=== PATIENT | female | born 2005 | race Caucasian/White ===

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

== ENCOUNTER → 2023-04-02 | Outpatient (CLI) | payer OTHER ==
[2023-04-02 19:51] LABS: HCT 43.2 % (37.2-46.3); HGB 13.9 g/dL (12.0-15.0); MCH 28.4 pg (27.0-32.0); MCHC 32.2 g/dL (32.0-37.0); MCV 88.3 FL (80.0-97.0); Mean Platelet Volume 9.3 FL (9.5-12.2); NRBC Per 100 WBC 0 X 10*3/uL (0.00-0.01); Platelet Count 524 X 10*3/uL (140-440); RBC 4.89 X 10*6/uL (4.10-5.20); RDW 13.2 % (11.5-14.5); WBC 12.88 X 10*3/uL (4.50-10.00)
[2023-04-02 20:27] LABS: ALT 9 U/L (8-44); AST 10 U/L (13-35); Albumin 4.6 g/dL (3.8-4.9); Albumin/Globulin Ratio 1.35 Ratio (1.60-3.17); Alkaline Phosphatase 112 U/L (41-126); BUN/Creat Ratio 15.29 Ratio (12.00-20.00); Blood Urea Nitrogen 10.7 mg/dL (9.0-27.0); Carbon Dioxide 23.9 mmol/L (21.6-31.8); Chloride 103 mmol/L (96-109); Globulin 3.4 g/dL (1.6-3.3); Glucose 104 mg/dL (70-110); Potassium 4.5 mmol/L (3.5-5.5); Sodium 139 mmol/L (135-145); Total Bilirubin <0.2 mg/dL (0.3-1.2)
[2023-04-02 21:18] LABS: Erythrocyte Sedimentation Rate 42 mm/Hr (0-20)
[2023-04-02 22:12] LABS: Hepatitis B Surface Antigen Nonreactive; Hepatitis C IgG Antibody Nonreactive
== END | disposition home or self-care (01) ==
LOC: LABWHC1 16:09
PROVIDERS: ATTEND Internal Medicine Gastroenterology
DX: K51.90 Ulcerative colitis, unspecified, without complications (principal)
CPT/HCPCS: 36415; 80053; 85027; 85652; 86480; 86704; 86803; 87340

== ENCOUNTER → 2023-10-11 | Outpatient (CLI) | payer OTHER ==
--- NOTE | 2023-10-11 10:24 | US ---
EXAMINATION TYPE: US abdomen complete DATE OF EXAM: 10/11/2023 COMPARISON: CT 2022 CLINICAL INDICATION: Female, 18 years old with history of R10.11 RUQ PAIN; RUQ pain after eating. TECHNIQUE: Multiple sonographic images of the abdomen are obtained. FINDINGS: EXAM MEASUREMENTS: Liver Length: 14.1 cm Gallbladder Wall: 0.29 cm CBD: 0.27 cm Spleen: Limited, measured at 9.1 cm Right Kidney: 10.4 x 5.4 x 4.1 cm Left Kidney: 10.4 x 5.4 x 5.6 cm RECOVERY AUDITOR NOTES: *Exam is limited due to gas. Pancreas: Portion of tail was obscured. Liver: Appears slightly coarse in echotexture. Gallbladder: Folds seen. Appearance of Phrygian's cap. Evidence for sonographic Rodriguez's sign: No CBD: Appears wnl Spleen: Limited visibility. Right Kidney: No hydronephrosis or masses seen Left Kidney: No hydronephrosis or masses seen Upper IVC: Appears wnl Abd Aorta: Appears wnl IMPRESSION: Correlate for hepatic steatosis.
== END | disposition home or self-care (01) ==
LOC: RADUSWWP 09:39
PROVIDERS: ATTEND Family Medicine
DX: R10.11 Right upper quadrant pain (principal)
CPT/HCPCS: 76700

== ENCOUNTER 2024-01-25 14:27 | Inpatient (IN) | payer OTHER ==
--- NOTE | 2024-01-25 14:41 | ED ---
General Adult HPI - General Chief complaint: Chest Pain Stated complaint: abn labs Source: patient Mode of arrival: ambulatory Limitations: no limitations - History of Present Illness Initial comments: Dictation was produced using [employer] dictation software. please excuse any grammatical, word or spelling errors. Chief Complaint: 18-year-old female with chest pressure History of Present Illness:18-year-old female sent in by PCP office for abnormal outpatient labs. Patient has no coronary artery disease. She has allegedly family history of cardiac disease. She was seen at primary care physician's office yesterday where she had normal EKG sent home. She had outpatient labs including high-sensitivity troponin and D-dimer which were both found to be elevated. She has pressure in her chest nonradiating. Patient reports that her symptoms seem to be exacerbated whenever she lies flat. Mother states that patient was sick with a cold couple weeks ago that lasted for a few days. States that she has been on prednisone therapy for her ulcerative colitis The ROS documented in this emergency department record has been reviewed and confirmed by me. Those systems with pertinent positive or negative responses have been documented in the HPI. All other systems are other negative and/or noncontributory. - Related Data Home Medications Medication Instructions Recorded Confirmed Albuterol Inhaler [Ventolin Hfa 2 puff INHALATION RT-QID PRN 01/25/24 01/25/24 Inhaler] Mesalamine [Lialda] 1.2 gm PO BID 01/25/24 01/25/24 norethindrone-e.estradioL-iron 1 tab PO DAILY 01/25/24 01/25/24 [Junel Fe 1.5 mg-30 Mcg Tablet] predniSONE See Taper PO DIRECTED 01/25/24 01/25/24 Allergies Allergy/AdvReac Type Severity Reaction Status Date / Time cephalexin monohydrate Allergy Anaphylaxis Verified 01/25/24 15:25 [From Keflex] propofol AdvReac Anaphylaxis Verified 01/25/24 15:25 Review of Systems ROS Statement: Those systems with pertinent positive or pertinent negative responses have been documented in the HPI. ROS Other: All systems not noted in ROS Statement are negative. Past Medical History Past Medical History: Asthma Additional Past Medical History / Comment(s): Taking Acutane for acne. Has stopped for one month. Diarrhea with blood. History of Any Multi-Drug Resistant Organisms: None Reported Past Surgical History: No Surgical Hx Reported Additional Past Anesthesia/Blood Transfusion Reaction / Comment(s): Has never had anesthesia. Past Psychological History: No Psychological Hx Reported Smoking Status: Never smoker Past Alcohol Use History: None Reported Past Drug Use History: None Reported - Past Family History Mother Family Medical History: No Reported History General Exam - General Exam Comments Initial Comments: PHYSICAL EXAM: General Impression: Alert and oriented x3, not in acute distress HEENT: Normocephalic atraumatic, extra-ocular movements intact, pupils equal and reactive to light bilaterally, mucous membranes moist. Cardiovascular: Heart regular rate and rhythm Chest: Able to complete full sentences, no retractions, no tachypnea Abdomen: abdomen soft, non-tender, non-distended, no organomegaly Musculoskeletal: Pulses present and equal in all extremities, no peripheral edema Motor: no focal deficits noted Neurological: CN II-XII grossly intact, no focal motor or sensory deficits noted Skin: Intact with no visualized rashes Psych: Normal affect and mood Limitations: no limitations Course Vital Signs 01/25/24 01/25/24 01/25/24 14:31 16:27 17:08 Temperature 97.8 F Pulse Rate 150 H 114 H 125 H Respiratory 18 16 19 Rate Blood Pressure 125/79 105/78 113/81 O2 Sat by Pulse 99 97 98 Oximetry EKG Findings - EKG Comments: EKG Findings:: My EKG interpretation: Ventricular rate 142, sinus tachycardia,. 120, QRS 82, QTc 410. No HI prolongation, no QTC prolongation, no ST or T-wave changes noted. HI depressions seen into the lateral precordial leads. Medical Decision Making - Medical Decision Making Was pt. sent in by a medical professional or institution (, PA, COUNTER POCKET TRIMMER, urgent care, hospital, or detention...) When possible be specific @ -Sent from primary care physician's office Did you speak to anyone other than the patient for history (EMS, parent, family, police, friend...)? What history was obtained from this source @ -See above Did you review nursing and triage notes (agree or disagree)? Why? @ -I reviewed and agree with nursing and triage notes Were old charts reviewed (outside hosp., previous admission, EMS record, old EKG, old radiological studies, urgent care reports/EKG's, detention records)? Report findings @ -No old charts were reviewed Differential Diagnosis (chest pain, altered mental status, abdominal pain women, abdominal pain men, vaginal bleeding, musculoskeletal, weakness, fever, dyspnea, syncope, headache, dizziness, GI bleed, back pain, seizure, CVA, palpatations, mental health)? @ -Differential Chest Pain: Stable Angina, Unstable Angina, STEMI, NSTEMI Aortic Dissection, Pneumothorax, Musculoskeletal, Esophageal Spasm GERD, Cholecystitis, Pancreatitis, Zoster, this is not meant to be an all-inclusive list. EKG interpreted by me (3pts min.). @ -See above X-rays interpreted by me (1pt min.). @ -Chest x-ray nonacute CT interpreted by me (1pt min.). @ -CT angiography of the chest shows no acute processes U/S interpreted by me (1pt. min.). @ -None done What testing was considered but not performed or refused? (CT, X-rays, U/S, labs)? Why? @ -None What meds were considered but not given or refused? Why? @ -None Was smoking cessation discussed for >3mins.? @ -No Were there social determinants of health that impacted care today? How? (Homelessness, low income, unemployed, alcoholism, drug addiction, transportation, low edu. Level, literacy, decrease access to med. care, senior care, rehab)? @ -No Was there de-escalation of care discussed even if they declined (Discuss DNR or withdrawal of care, Hospice)? DNR status @ -No What co-morbidities impacted this encounter? (DM, HTN, Smoking, COPD, CAD, Cancer, CVA, ARF, Chemo, Hep., AIDS, mental health diagnosis, sleep apnea, morbid obesity)? @ -None Was patient admitted / discharged? Hospital course, mention meds given and route, prescriptions, significant lab abnormalities, going to OR and other pertinent info. @ -18-year-old female presents to the emergency department for elevated troponin and D-dimer. He is labs were ordered by primary care doctor yesterday after she presented there for chest pain. Vital signs upon arrival shows tachycardia. Patient symptoms concerning for pericarditis. Laboratory evaluation obtained showing troponin of 0.443. EKG shows HI depression. Urine drug screen is negative. Case discussed with cardiology request that patient be put on Motrin, colchicine and Protonix. Patient be admitted to Dr. Key. Did you discuss the management of the patient with other professionals (professionals i.e. , PA, COUNTER POCKET TRIMMER, lab, RT, psych nurse, social worker school, psychology associate, teacher, ict help desk officer, renal case manager)? Give summary @ -See above Was critical care preformed (if so, how long)? @ -No Undiagnosed new problem with uncertain prognosis? @ -No Drug Therapy requiring intensive monitoring for toxicity (Heparin, Nitro, Insulin, Cardizem)? @ -No Were any procedures done? @ -No Diagnosis/symptom? Acute, or Chronic, or Acute on Chronic? Uncomplicated (without systemic symptoms) or Complicated (systemic symptoms)? @ -Carditis Side effects of treatment? @ -No Exacerbation, Progression, or Severe Exacerbation? @ -No Poses a threat to life or bodily function? How? (Chest pain, [place], [place], pneumonia, PE, COPD, DKA, ARF, appy, cholecystitis, CVA, Diverticulitis, Homicidal, Suicidal, threat to staff... and all critical care pts) @ -yes - Lab Data Result diagrams: 01/25/24 15:07 01/25/24 15:07 Lab Results 01/25/24 01/25/24 01/25/24 Range/Units 15:07 15:07 15:07 WBC 8.9 (4.0-11.0) k/uL RBC 4.59 (3.80-5.40) m/uL Hgb 13.9 (11.4-16.0) gm/dL Hct 43.3 (34.0-46.0) % MCV 94.3 (80.0-100.0) fL MCH 30.3 (25.0-35.0) pg MCHC 32.1 (31.0-37.0) g/dL RDW 12.9 (11.5-15.5) % Plt Count 478 H (150-450) k/uL MPV 6.4 Neutrophils % 76 % Lymphocytes % 15 % Monocytes % 5 % Eosinophils % 3 % Basophils % 0 % Neutrophils # 6.7 (1.3-7.7) k/uL Lymphocytes # 1.3 (1.0-4.8) k/uL Monocytes # 0.5 (0-1.0) k/uL Eosinophils # 0.3 (0-0.7) k/uL Basophils # 0.0 (0-0.2) k/uL PT 11.1 (10.0-12.5) sec INR 1.0 (<1.2) APTT 24.7 (22.0-30.0) sec Sodium 137 (137-145) mmol/L Potassium 3.6 (3.5-5.1) mmol/L Chloride 105 (98-107) mmol/L Carbon Dioxide 21 L (22-30) mmol/L Anion Gap 11 mmol/L BUN 8 (7-17) mg/dL Creatinine 0.81 (0.52-1.04) mg/dL Est GFR (CKD-EPI)AfAm >90 (>60 ml/min/1.73 sqM) Est GFR (CKD-EPI)NonAf >90 (>60 ml/min/1.73 sqM) Glucose 126 H (74-99) mg/dL Calcium 9.1 (8.4-10.2) mg/dL Magnesium 2.0 (1.6-2.3) mg/dL Total Bilirubin 0.7 (0.2-1.3) mg/dL AST 17 (14-36) U/L ALT 13 (4-34) U/L Alkaline Phosphatase 105 (38-126) U/L Troponin I (0.000-0.034) ng/mL Total Protein 7.5 (6.3-8.2) g/dL Albumin 4.1 (3.5-5.0) g/dL HCG, Quant <2.4 mIU/mL Urine Opiates Screen (NotDetected) Ur Oxycodone Screen (NotDetected) Urine Methadone Screen (NotDetected) Ur Barbiturates Screen (NotDetected) U Tricyclic Antidepress (NotDetected) Ur Phencyclidine Scrn (NotDetected) Ur Amphetamines Screen (NotDetected) U Methamphetamines Scrn (NotDetected) U Benzodiazepines Scrn (NotDetected) Urine Cocaine Screen (NotDetected) U Marijuana (THC) Screen (NotDetected) 01/25/24 01/25/24 Range/Units 15:07 17:08 WBC (4.0-11.0) k/uL RBC (3.80-5.40) m/uL Hgb (11.4-16.0) gm/dL Hct (34.0-46.0) % MCV (80.0-100.0) fL MCH (25.0-35.0) pg MCHC (31.0-37.0) g/dL RDW (11.5-15.5) % Plt Count (150-450) k/uL MPV Neutrophils % % Lymphocytes % % Monocytes % % Eosinophils % % Basophils % % Neutrophils # (1.3-7.7) k/uL Lymphocytes # (1.0-4.8) k/uL Monocytes # (0-1.0) k/uL Eosinophils # (0-0.7) k/uL Basophils # (0-0.2) k/uL PT (10.0-12.5) sec INR (<1.2) APTT (22.0-30.0) sec Sodium (137-145) mmol/L Potassium (3.5-5.1) mmol/L Chloride (98-107) mmol/L Carbon Dioxide (22-30) mmol/L Anion Gap mmol/L BUN (7-17) mg/dL Creatinine (0.52-1.04) mg/dL Est GFR (CKD-EPI)AfAm (>60 ml/min/1.73 sqM) Est GFR (CKD-EPI)NonAf (>60 ml/min/1.73 sqM) Glucose (74-99) mg/dL Calcium (8.4-10.2) mg/dL Magnesium (1.6-2.3) mg/dL Total Bilirubin (0.2-1.3) mg/dL AST (14-36) U/L ALT (4-34) U/L Alkaline Phosphatase (38-126) U/L Troponin I 0.443 H* (0.000-0.034) ng/mL Total Protein (6.3-8.2) g/dL Albumin (3.5-5.0) g/dL HCG, Quant mIU/mL Urine Opiates Screen Not Detected (NotDetected) Ur Oxycodone Screen Not Detected (NotDetected) Urine Methadone Screen Not Detected (NotDetected) Ur Barbiturates Screen Not Detected (NotDetected) U Tricyclic Antidepress Not Detected (NotDetected) Ur Phencyclidine Scrn Not Detected (NotDetected) Ur Amphetamines Screen Not Detected (NotDetected) U Methamphetamines Scrn Not Detected (NotDetected) U Benzodiazepines Scrn Not Detected (NotDetected) Urine Cocaine Screen Not Detected (NotDetected) U Marijuana (THC) Screen Not Detected (NotDetected) Disposition Clinical Impression: Myocarditis Disposition: ADMITTED IP TO THIS [facility] Condition: Fair Referrals: Benny Key MD [Primary Care Provider] - 1-2 days Decision Time: 17:53
[2024-01-25 15:31] LABS: ALT 13 U/L (4-34); AST 17 U/L (14-36); African American GFR (CKD) >90 (>60 ml/min/1.73 sqM); Albumin 4.1 g/dL (3.5-5.0); Alkaline Phosphatase 105 U/L (38-126); Anion Gap 11 mmol/L; Blood Urea Nitrogen 8 mg/dL (7-17); Calcium 9.1 mg/dL (8.4-10.2); Carbon Dioxide 21 mmol/L (22-30); Chloride 105 mmol/L (98-107); Glucose 126 mg/dL (74-99); Non-African American GFR(CKD) >90 (>60 ml/min/1.73 sqM); Potassium 3.6 mmol/L (3.5-5.1); Sodium 137 mmol/L (137-145); Total Bilirubin 0.7 mg/dL (0.2-1.3); Total Protein 7.5 g/dL (6.3-8.2)
[2024-01-25 15:43] LABS: Basophils % (A) 0 %; Eosinophils # (A) 0.3 k/uL (0-0.7); Eosinophils % (A) 3 %; HCT 43.3 % (34.0-46.0); HGB 13.9 gm/dL (11.4-16.0); Lymphocytes # (A) 1.3 k/uL (1.0-4.8); Lymphocytes % (A) 15 %; MCH 30.3 pg (25.0-35.0); MCHC 32.1 g/dL (31.0-37.0); MCV 94.3 fL (80.0-100.0); Mean Platelet Volume 6.4; Monocytes # (A) 0.5 k/uL (0-1.0); Monocytes % (A) 5 %; Neutrophils # (A) 6.7 k/uL (1.3-7.7); Neutrophils % (A) 76 %; Platelet Count 478 k/uL (150-450); RBC 4.59 m/uL (3.80-5.40); RDW 12.9 % (11.5-15.5); WBC 8.9 k/uL (4.0-11.0)
[2024-01-25 15:45] LABS: Partial Thromboplastin Time 24.7 sec (22.0-30.0); Prothrombin Time 11.1 sec (10.0-12.5)
[2024-01-25 15:48] LABS: HCG,Quantitative Serum <2.4 mIU/mL
--- NOTE | 2024-01-25 15:57 | XR ---
EXAMINATION TYPE: XR chest 2V DATE OF EXAM: 01/25/2024 COMPARISON: NONE HISTORY: Chest pain TECHNIQUE: Frontal and lateral views of the chest are obtained. FINDINGS: There is no focal air space opacity, pleural effusion, or pneumothorax seen. The cardiac silhouette size is within normal limits. The osseous structures are intact. IMPRESSION: No acute cardiopulmonary process. [facility], Workstation: [facility], 01/25/2024 3:55 PM
[2024-01-25] MEDS: KETOROLAC 15 MG/ML 1 ML VIAL IVP STA (17:23)
--- NOTE | 2024-01-25 17:33 | CT ---
EXAMINATION TYPE: CT angio chest DATE OF EXAM: 01/25/2024 5:11 PM COMPARISON: None CLINICAL INDICATION: Female, 18 years old with history of positive D-dimer; Positive d-dimer. TECHNIQUE/CONTRAST: CTA scan of the thorax is performed with IV Contrast, patient injected with 80ml mL of Isovue 370, AR P images are created and reviewed these are created on a separate workstation.. CT DLP: 267.5 mGycm, Automated exposure control for dose reduction was used. FINDINGS: Pulmonary Artery: There is no evidence for a filling defect within the pulmonary vasculature to sugge st acute pulmonary embolism. The pulmonary artery is of normal size. Lungs/Pleura: No evidence of focal consolidation, pleural effusion or pneumothorax. Airway: Large airways are patent. Heart: Heart is within normal limits for size. Vasculature: No evidence of aortic aneurysm. Mediastinum: No gross evidence of adenopathy. Musculoskeletal: No acute osseous abnormalities Soft Tissues/lymph nodes: Unremarkable. Lower neck: No significant findings. Upper Abdomen: No significant findings. IMPRESSION: 1. No evidence of pulmonary embolism. Follow up recommendations for incidental pulmonary nodules, if there are any, are per [employer] [place] [employer] [employer] or [employer]. https://radiopaedia.org/articles/fjaynjhliy-xeooofy-vnilfsppu-cmgcsk-huffpsfsezguhed-2?lang=us [facility], , 01/25/2024 5:30 PM
[2024-01-25 17:34] LABS: Amphetamine Screen,Urine Not Detected (NotDetected); Barbiturate Screen,Urine Not Detected (NotDetected); Benzodiazepines Screen,Urine Not Detected (NotDetected); Cocaine Screen,Urine Not Detected (NotDetected); Methadone Screen, Urine Not Detected (NotDetected); Opiate Screen,Urine Not Detected (NotDetected); Oxycodone Screen, Urine Not Detected (NotDetected); Phencyclidine Screen,Urine Not Detected (NotDetected); Tricyclic Antidepressant,Urine Not Detected (NotDetected); Urn Cannabinoid Scrn Not Detected (NotDetected)
[2024-01-25] MEDS ORDERED: ONDANSETRON 4 MG/2 ML VIAL IVP PRN (17:47)
[2024-01-25] MEDS ORDERED: NALOXONE 0.4 MG/ML 1 ML VIAL IV PRN (17:47)
[2024-01-25] MEDS: SODIUM CHLORIDE 0.9% 1,000 ML IV SCH (19:20)
[2024-01-25] MEDS: IBUPROFEN 600 MG TAB PO SCH (23:03)
[2024-01-26] MEDS: PANTOPRAZOLE 40 MG/10 ML VIAL IV SCH (09:02)
[2024-01-26] MEDS: COLCHICINE 0.6 MG EACH PO SCH (10:08)
[2024-01-26] MEDS ORDERED: ALBUTEROL NEBULIZED 2.5 MG/3 ML INHALATION PRN (12:19)
--- NOTE | 2024-01-26 12:39 | P.CRDCN ---
History of Present Illness Consult date: 01/26/24 History of present illness: HISTORY OF PRESENTING ILLNESS Patient is a 18-year-old female with past medical history of ulcerative colitis. For this she was previously on Humira which was discontinued because of abnormal labs. Since then she has been on mesalamine and p.o. steroids. She presented to the hospital because of 3 to 4 days of substernal chest heaviness s ensations. For this she went to the primary care physician who performed an ECG and a chest x-ray which were normal. They had performed a lab test on her which because of abnormality she was referred to the hospital. Denies any recent viral infections, sore throat or runny nose. She does have ul cerative colitis so has bloody diarrhea often. She denies any abdominal pain nausea or vomiting. She denies any palpitations lightheadedness dizziness or syncopal episodes. Denies any family Struve premature coronary artery disease sudden cardiac . Denies any history of smoking, recreational use marijuana use or alcohol use or sexual activity. On admission to the ER her troponin was noted to be elevated 0.4, 0.3, 0.2. Her renal function and hemoglobin were normal platelets were normal. Her chest x- ray and CT angiogram chest did not show any acute findings with no evidence of PE. Her ECG shows sinus tachycardia. Telemetry also shows sinus tachycardia with no concerns of any other arrhythmias. No concerns of acute ST or T wave changes concerning of acute pericarditis or acute ischemia. REVIEW OF SYSTEMS 14 point review of system is negative except what is mentioned above in HPI. PHYSICAL EXAMINATION Vital signs reviewed. Head: Normocephalic. Eyes: Sclerae nonicteric. Neck: Brisk carotid upstroke, no jugular venous distention. Lungs: Clear to auscultation. Heart: Regular rate and rhythm, S1-S2, no S3, no murmur or rub. Abdomen: Soft nontender, positive bowel sounds. Extremities: No edema, intact distal pulses. Neuro: Alert, oritented, no focal deficits. Detailed neuro exam was not performed. ASSESSMENT Acute myocarditis Inappropriate sinus tachycardia, likely due to above Substernal chest pressure, likely due to above Prior history of ulcerative colitis PLAN Extensive viral panel testing, complete viral panel, hepatitis C, HIV, coxsackie, covid ESR and CRP Start colchicine 0.6 mg daily, ibuprofen 600 mg 3 times daily, Protonix 40 mg p.o. AC breakfast, Start metoprolol succinate 25 daily. Obtain echo Heriberto Wood MD, FACC, RPVI Thank you for allowing [facility] to participate in this patient's care. Feel free to reach out in case of any followup questions. Past Medical History Past Medical History: Asthma Additional Past Medical History / Comment(s): Taking Acutane for acne. Has stopped for one month. Diarrhea with blood. History of Any Multi-Drug Resistant Organisms: None Reported Past Surgical History: No Surgical Hx Reported Additional Past Anesthesia/Blood Transfusion Reaction / Comment(s): Has never had anesthesia. Past Psychological History: No Psychological Hx Reported Smoking Status: Never smoker Past Alcohol Use History: None Reported Past Drug Use History: None Reported - Past Family History Mother Family Medical History: No Reported History Medications and Allergies Home Medications Medication Instructions Recorded Confirmed Type Albuterol Inhaler [Ventolin Hfa 2 puff INHALATION RT-QID PRN 01/25/24 01/25/24 History Inhaler] Mesalamine [Lialda] 1.2 gm PO BID 01/25/24 01/25/24 History norethindrone-e.estradioL-iron 1 tab PO DAILY 01/25/24 01/25/24 History [Junel Fe 1.5 mg-30 Mcg Tablet] predniSONE See Taper PO DIRECTED 01/25/24 01/25/24 History Allergies Allergy/AdvReac Type Severity Reaction Status Date / Time cephalexin monohydrate Allergy Anaphylaxis Verified 01/25/24 15:25 [From Keflex] propofol AdvReac Anaphylaxis Verified 01/25/24 15:25 Physical Exam Vitals: Vital Signs Temp Pulse Resp BP Pulse Ox 01/26/24 08:29 90 18 112/78 99 01/26/24 04:52 85 20 101/65 97 01/26/24 01:57 101 H 16 111/72 01/25/24 23:03 114 H 18 115/71 98 01/25/24 22:32 109 H 20 113/79 97 01/25/24 19:23 129 H 16 112/78 97 01/25/24 17:08 125 H 19 113/81 98 01/25/24 16:27 114 H 16 105/78 97 01/25/24 14:31 97.8 F 150 H 18 125/79 99 Results 01/25/24 15:07 01/25/24 15:07 Cardiac Enzymes 01/25/24 01/25/24 01/25/24 Range/Units 15:07 15:07 19:31 AST 17 (14-36) U/L Troponin I 0.443 H* 0.319 H* (0.000-0.034) ng/mL 01/25/24 Range/Units 22:08 AST (14-36) U/L Troponin I 0.242 H* (0.000-0.034) ng/mL Coagulation 01/25/24 Range/Units 15:07 PT 11.1 (10.0-12.5) sec APTT 24.7 (22.0-30.0) sec CBC 01/25/24 Range/Units 15:07 WBC 8.9 (4.0-11.0) k/uL RBC 4.59 (3.80-5.40) m/uL Hgb 13.9 (11.4-16.0) gm/dL Hct 43.3 (34.0-46.0) % Plt Count 478 H (150-450) k/uL Comprehensive Metabolic Panel 01/25/24 Range/Units 15:07 Sodium 137 (137-145) mmol/L Potassium 3.6 (3.5-5.1) mmol/L Chloride 105 (98-107) mmol/L Carbon Dioxide 21 L (22-30) mmol/L BUN 8 (7-17) mg/dL Creatinine 0.81 (0.52-1.04) mg/dL Glucose 126 H (74-99) mg/dL Calcium 9.1 (8.4-10.2) mg/dL AST 17 (14-36) U/L ALT 13 (4-34) U/L Alkaline Phosphatase 105 (38-126) U/L Total Protein 7.5 (6.3-8.2) g/dL Albumin 4.1 (3.5-5.0) g/dL Current Medications Generic Name Dose Route Start Last Admin Trade Name Freq PRN Reason Stop Dose Admin Albuterol Sulfate 2.5 mg 01/26/24 12:19 Albuterol Nebulized 2.5 Mg/3 Ml INHALATION RT-QID PRN Shortness Of Breath Balsalazide 2,250 mg 01/26/24 16:00 Balsalazide Disodium 750 Mg Capsule PO TID [facility] Colchicine 0.6 mg 01/26/24 09:00 01/26/24 10:08 Colchicine 0.6 Mg Each PO 0.6 mg DAILY BLU Administration Sodium Chloride 1,000 mls @ 75 mls/hr 01/25/24 18:00 01/26/24 08:57 Saline 0.9% IV Not Given .[id number] [facility] Ibuprofen 600 mg 01/25/24 18:00 01/26/24 08:51 Ibuprofen 600 Mg Tab PO 600 mg Q6H BLU Administration Metoprolol Succinate 25 mg 01/26/24 12:45 Metoprolol Succinate (Er) 25 Mg Tab.Er.24h PO DAILY [facility] Naloxone HCl 0.2 mg 01/25/24 17:47 Naloxone 0.4 Mg/Ml 1 Ml Vial IV Q2M PRN Opioid Reversal Non-Formulary Medication 1 tab 01/27/24 09:00 Norethindrone-E.Estradiol-Iron [Junel Fe 1.5 Mg-30 Mcg Tablet] PO DAILY [facility] Ondansetron HCl 4 mg 01/25/24 17:47 Ondansetron 4 Mg/2 Ml Vial IVP Q8HR PRN Nausea And Vomiting Pantoprazole Sodium 40 mg 01/27/24 07:30 Pantoprazole 40 Mg Tablet PO AC-BRKFST [facility] 01/25/24 15:07 01/25/24 15:07
[2024-01-26] MEDS: METOPROLOL SUCCINATE (ER) 25 MG TAB.ER.24H PO SCH (12:54)
[2024-01-26] MEDS: BALSALAZIDE DISODIUM 750 MG CAPSULE PO SCH (16:58)
--- NOTE | 2024-01-26 20:18 | CA ---
Transthoracic Echo Report Name: Lauren Pereira Age: 18 Gender: F : 2005 Exam Date: 01/26/2024 13:24 Exam Location: [facility] Ht (in): 61 Wt (lb): 140 Ordering Physician: Heriberto Wood MD ([email or web address]) Attending/Referring Phys: Functional Skills Tutor Michelle Bae RDCS Procedure CPT: Indications: myocarditis Cardiac Hx: Technical Quality: Good Contrast 1: Total Dose (mL): Contrast 2: Total Dose (mL): MEASUREMENTS (Male / Female) Normal Values 2D ECHO LV Diastolic Diameter PLAX 4.2 cm 4.2 - 5.9 / 3.9 - 5.3 cm LV Systolic Diameter PLAX 3.0 cm IVS Diastolic Thickness 0.7 cm 0.6 - 1.0 / 0.6 - 0.9 cm LVPW Diastolic Thickness 0.8 cm 0.6 - 1.0 / 0.6 - 0.9 cm LV Relative Wall Thickness 0.3 LVOT Diameter 1.8 cm LV Diastolic Volume MOD BP 84.8 cm??? 67 - 155 / 56 - 104 cm??? LV Systolic Volume MOD BP 37.2 cm??? 22 - 58 / 19 - 49 cm??? LV Ejection Fraction MOD BP 56.1 % >= 55 % LV Cardiac Index MOD BP 3107.2 cm???/min???m??? LV Diastolic Volume MOD 4C 78.9 cm??? LV Systolic Volume MOD 4C 33.7 cm??? LV Ejection Fraction MOD 4C 57.3 % LV Cardiac Index MOD 4C 2951.5 cm???/min???m??? LV Diastolic Length 4C 7.4 cm LV Systolic Length 4C 6.5 cm LV Diastolic Volume MOD 2C 91.3 cm??? LV Systolic Volume MOD 2C 39.5 cm??? LV Ejection Fraction MOD 2C 56.8 % LV Cardiac Index MOD 2C 3385.9 cm???/min???m??? LV Diastolic Length 2C 7.4 cm LV Systolic Length 2C 6.1 cm LA Volume 21.0 cm??? 18 - 58 / 22 - 52 cm??? LA Volume Index 12.6 cm???/m??? 16 - 28 cm???/m??? Ascending Aorta Diameter 2.5 cm DOPPLER AV Peak Velocity 148.3 cm/s AV Peak Gradient 8.8 mmHg AV Mean Velocity 103.3 cm/s AV Mean Gradient 4.7 mmHg AV Velocity Time Integral 25.8 cm LVOT Peak Velocity 118.1 cm/s LVOT Peak Gradient 5.6 mmHg LVOT Velocity Time Integral 19.8 cm LVOT Stroke Volume 50.2 cm??? LVOT Stroke Volume Index 30.9 ml/m??? LVOT Cardiac Index 3277.3 cm???/min???m??? AV Area Cont Eq vti 1.9 cm??? AV Area Cont Eq pk 2.0 cm??? PV Peak Velocity 88.4 cm/s PV Peak Gradient 3.1 mmHg FINDINGS Left Ventricle Left ventricular ejection fraction is estimated at 55-60 %. Left ventricular cavity size normal. Left ventricular wall thickness normal. No obvious regional wall motion abnormalities. Right Ventricle Normal right ventricular size and function. Unable to estimate the right ventricular systolic pressure. Right Atrium Normal right atrial size. Left Atrium Normal left atrial size. Mitral Valve Structurally normal mitral valve. No evidence for mitral valve prolapse. No mitral stenosis. Trace mitral regurgitation. Aortic Valve Trileaflet aortic valve. No aortic valve stenosis or regurgitation. Tricuspid Valve Structurally normal tricuspid valve. No tricuspid stenosis. Trace tricuspid regurgitation. Pulmonic Valve Structurally normal pulmonic valve. No pulmonic stenosis. Trace pulmonic regurgitation. Pericardium No pericardial effusion. Thickened pericardium. Aorta Normal size aortic root and proximal ascending aorta. CONCLUSIONS Left ventricular ejection fraction is estimated at 55-60 %. No obvious regional wall motion abnormalities. Normal RV size and systolic function Normal chamber size No significant valvular dysfunction Some evidence of pericardial thickening Previewed by: Dr Heriberto Wood (Electronically Signed) Final Date: 26 January 2024 20:15
[2024-01-26] MEDS: METOPROLOL TARTRATE 25 MG TAB PO SCH (21:38)
[2024-01-26 23:21] LABS: C Reactive Protein 12.7 mg/dL (0.00-0.80)
[2024-01-27 04:53] LABS: Basophils % (A) 0 %; Eosinophils # (A) 0.3 k/uL (0-0.7); Eosinophils % (A) 3 %; HCT 35.5 % (34.0-46.0); HGB 11.4 gm/dL (11.4-16.0); Lymphocytes # (A) 1.7 k/uL (1.0-4.8); Lymphocytes % (A) 21 %; MCH 30.3 pg (25.0-35.0); MCHC 32.2 g/dL (31.0-37.0); MCV 93.9 fL (80.0-100.0); Monocytes # (A) 0.6 k/uL (0-1.0); Monocytes % (A) 7 %; Neutrophils # (A) 5.6 k/uL (1.3-7.7); Neutrophils % (A) 67 %; Platelet Count 409 k/uL (150-450); RBC 3.78 m/uL (3.80-5.40); RDW 13.3 % (11.5-15.5); WBC 8.3 k/uL (4.0-11.0)
[2024-01-27] MEDS: PANTOPRAZOLE 40 MG TABLET PO SCH (06:30)
[2024-01-27] MEDS: NORETHINDRONE E ESTRADIOL IRON PO SCH (07:19)
--- NOTE | 2024-01-27 13:46 | P.PN ---
Subjective Progress Note Date: 01/27/24 HISTORY OF PRESENTING ILLNESS Patient is a 18-year-old female with past medical history of ulcerative colitis. For this she was previously on Humira which was discontinued because of abnormal labs. Since then she has been on mesalamine and p.o. steroids. She presented to the hospital because of 3 to 4 days of substernal chest heaviness sensations. For this she went to the primary care physician who performed an ECG and a chest x-ray which were normal. They had performed a lab test on her which because of abnormality she was referred to the hospital. Denies any recent viral infections, sore throat or runny nose. She does have ulcerative colitis so has bloody diarrhea often. She denies any abdominal pain nausea or vomiting. She denies any palpitations lightheadedness dizziness or syncopal episodes. Denies any family Struve premature coronary artery disease sudden cardiac . Denies any history of smoking, recreational use marijuana use or alcohol use or sexual activity. On admission to the ER her troponin was noted to be elevated 0.4, 0.3, 0.2. Her renal function and hemoglobin were normal platelets were normal. Her chest x- ray and CT angiogram chest did not show any acute findings with no evidence of PE. Her ECG shows sinus tachycardia. Telemetry also shows sinus tachycardia with no concerns of any other arrhythmias. No concerns of acute ST or T wave changes concerning of acute pericarditis or acute ischemia. January 27, 2024 Patient is seen and examined at bedside this a.m. Patient reports that her chest pressure has got better. Her heart rate is around 90s, improved from 130s yesterday. Sinus tachycardia. Since last night patient is having tammy bloody diarrhea and reports that she might be having ulcerative colitis flare. She denies any abdominal pain however. PHYSICAL EXAMINATION Vital signs reviewed. Head: Normocephalic. Eyes: Sclerae nonicteric. Neck: Brisk carotid upstroke, no jugular venous distention. Lungs: Clear to auscultation. Heart: Regular rate and rhythm, S1-S2, no S3, no murmur or rub. Abdomen: Soft nontender, positive bowel sounds. Extremities: No edema, intact distal pulses. Neuro: Alert, oritented, no focal deficits. Detailed neuro exam was not performed. ASSESSMENT Acute myocarditis, Differentials include extraintestinal manifestation of inflammatory bowel disease. Recommend ruling out mesalamine toxicity as it can cause myocardial information as well. Inappropriate sinus tachycardia, likely due to above Substernal chest pressure, likely due to above Prior history of ulcerative colitis Pertinent cardiac testing Echocardiogram shows an EF of 55% with no major structural or valvular abnormality with preserved LV size and regional wall motion. There is mild thickening of pericardium noticed however. Labs ESR 55, NT-proBNP 453, CRP 12.7 PLAN Extensive viral panel testing, complete viral panel, hepatitis C, HIV, coxsackie, covid Continue colchicine. Appreciate GI recommendations if it is contraindicated in IBD. Discontinue ibuprofen. Continue Protonix Add prednisone 40 mg p.o. daily Continue metoprolol succinate 25 mg twice daily. B-donte should be done only for short-term. Consult gastroenterology Objective - Vital Signs Vital signs: Vital Signs Temp 98.4 F 01/27/24 08:25 Pulse 91 01/27/24 12:00 Resp 18 01/27/24 12:00 BP 89/60 01/27/24 12:00 Pulse Ox 99 01/27/24 12:00 FiO2 Intake & Output 01/26/24 01/27/24 01/27/24 18:59 06:59 18:59 Weight 63.503 kg 65.2 kg Other: Voiding Method Toilet Toilet # Voids 1 - Labs CBC & Chem 7: 01/27/24 04:12 01/25/24 15:07 Labs: Abnormal Lab Results - Last 24 Hours (Table) 01/26/24 01/26/24 01/27/24 Range/Units 12:36 12:36 04:12 RBC 3.78 L (3.80-5.40) m/uL ESR 55 H (0-20) mm/Hr C-Reactive Protein 12.70 H (0.00-0.80) mg/dL NT-Pro-B Natriuret Pep 453 H (0-125) pg/mL
[2024-01-27] MEDS: predniSONE 20 MG TAB PO SCH (15:05)
[2024-01-27] MEDS: SODIUM CHLORIDE 0.9% 1,000 ML IV ONE (16:49)
--- NOTE | 2024-01-28 01:57 | HP ---
HISTORY AND PHYSICAL CHIEF COMPLAINT: Chest pain. HISTORY OF PRESENT ILLNESS: This is the first known admission for this 18-year-old female who has a history of ulcerative colitis. She presented to the office 2 days ago complaining of a pressure- like sensation in her chest. She had no diaphoresis, shortness of breath, radiation of the discomfort, etc. EKG was normal. Laboratory work was sent out and her troponin came back very elevated and she was called and admitted to the hospital. REVIEW OF SYSTEMS: She has had no fever, no chills, sore throat, cough, viral infection type symptoms, abdominal pain, diarrhea, hematochezia, urinary complaints, etc. Past medical history, family history and personal and social histories are all unremarkable except for her history of colitis. She has been on various medications lately and was recently taken off monoclonal antibody and placed on prednisone 10 mg 4 times a day by Gastroenterology. She does not smoke or drink. She is on control. PHYSICAL EXAMINATION: VITAL SIGNS: Normal. HEAD, EARS, EYES, NOSE, MOUTH, AND THROAT: Normal. CHEST: Clear. There are no rubs or rhonchi. CARDIAC: Normal sinus rhythm with no murmurs or extra sounds. ABDOMEN: Soft, nontender. EXTREMITIES: Normal. NEUROLOGICAL: She is intact. She is admitted to the hospital with diagnoses of: 1. Chest pain with elevated troponin. 2. Ulcerative colitis. PLAN: 1. Bedrest. 2. IV fluids. 3. Serial EKGs. 4. Cardiology consult. 5. Echocardiogram. MMKAMERON / YEISONN: [id number] /
--- NOTE | 2024-01-28 04:33 | PN ---
PROGRESS NOTE DATE OF SERVICE: 01/27/2024 CHIEF COMPLAINT: Chest pain and elevated troponin. HISTORY OF PRESENT ILLNESS: This is a young lady feeling fine. She has had no further chest pain. She is being further evaluated by Cardiology. It looks as though this may be due to myocarditis. No other abnormalities are being discovered. PHYSICAL EXAMINATION: GENERAL: Color is good. CHEST: Clear. CARDIAC: Normal. ABDOMEN: Soft, nontender. IMPRESSION: 1. Elevated troponin with chest pain. 2. Possible myocarditis. 3. Ulcerative colitis. PLAN: No change in program and await for any further recommendations from Cardiology. She will also be referred to GI. MMODL / IJN: [id number] /
--- NOTE | 2024-01-28 06:03 | PN ---
PROGRESS NOTE DATE OF SERVICE: 01/26/2024 CHIEF COMPLAINT: Chest pain and elevated troponins. HISTORY OF PRESENT ILLNESS: This young lady seems to be doing fairly well. She is not having the chest pain now. She is being evaluated by Cardiology. Studies have been negative except for her troponins. She is not having a lot of difficulty with her colonic disease either. PHYSICAL EXAM: CHEST: Clear. CARDIAC: Normal. ABDOMEN: Soft, nontender. IMPRESSION: 1. Chest pain with elevated troponins. 2. ? Myocarditis. 3. Ulcerative colitis. PLAN: Continue her cardiac workup. MMODL / IJN: [id number] /
--- NOTE | 2024-01-28 12:59 | P.PN ---
Subjective HISTORY OF PRESENT ILLNESS: Patient examined this morning at the bedside. Patient currently denies any chest pain or pressure. She denies any shortness of breath. Vital signs are stable. Echocardiogram completed revealing ejection fraction 55 to 60%, no obvious regional wall motion abnormalities, no no significant valvular dysfunction, and some evidence of pericardial thickening. PHYSICAL EXAM: VITAL SIGNS: Reviewed. GENERAL: Well-developed in no acute distress. NECK: Supple. No JVD or thyromegaly LUNGS: Respirations even and unlabored. Lungs essentially clear to auscultation bilaterally. HEART: Regular rate and rhythm. S1 and S2 heard. EXTREMITIES: Normal range of motion. No clubbing or cyanosis. Peripheral pulses intact. No lower extremity edema ASSESSMENT: Suspected acute myocarditis Chest pain, secondary to above, acute coronary syndrome ruled out Elevated troponins, secondary to myocarditis, ACS ruled out Acute exacerbation of ulcerative colitis Sinus tachycardia PLAN: Prednisone added yesterday by Dr. Wood due to flareup of ulcerative colitis Continue colchicine and metoprolol Patient is stable for discharge home today from a cardiac standpoint Patient to follow-up postdischarge with Dr. Wood Recommend outpatient cardiac MRI Nurse practitioner note has been reviewed by physician. Signing provider agrees with the documented findings, assessment, and plan of care documented by RECORD PRODUCER as a scribe. Objective - Vital Signs Vital signs: Vital Signs Temp 97.8 F 01/28/24 12:00 Pulse 81 01/28/24 12:00 Resp 16 01/28/24 12:00 BP 101/66 01/28/24 12:00 Pulse Ox 98 01/28/24 12:00 FiO2 Intake & Output 01/27/24 01/28/24 01/28/24 18:59 06:59 18:59 Intake Total 120 Balance 120 Weight 65.6 kg Intake: Oral 120 Other: Voiding Method Toilet Toilet Toilet # Voids 2 # Bowel Movements 2 3 - Labs CBC & Chem 7: 01/27/24 04:12 01/25/24 15:07
[2024-01-28 14:32] LABS: HIV-1 RNA Not detected (Not detected)
[2024-01-28 14:45] LABS: Hepatitis C Virus RNA, Qual Not Detected (Not detected)
--- NOTE | 2024-01-28 14:49 | P.GSCN ---
History of Present Illness Consult date: 01/28/24 History of present illness: CHIEF COMPLAINT: Chest pain and elevated heart rate HISTORY OF PRESENT ILLNESS: This is a 18-year-old female with a known history of ulcerative colitis. She presented to the hospital with complaints of chest pain elevated heart rate. And apparently abnormal labs in the outpatient setting. She has been seen by cardiology and diagnosed with myocarditis. Patient is also been having bloody stools. She has a known history of ulcerative colitis. Had been on Humara then switched over to budesonide with no improvement and is now on oral prednisone in the outpatient setting. They resumed the oral prednisone during this admission. Patient has had no improvement in her bowel movements. She reports she has had bloody bowel movements for 2 months. She has 5-6 stools that are bloody per day. She denies any abdominal pain. Her last colonoscopy was in May 2022 reporting ulcerative colitis. Hemoglobin was 13 admission down to 11.4 sed rate and CRP are elevated. PAST MEDICAL HISTORY: See below PAST SURGICAL HISTORY: See below MEDICATIONS: See below ALLERGIES: See below SOCIAL HISTORY: No illicit drug use. REVIEW OF SYSTEMS: CONSTITUTIONAL: Denies fever or chills. HEENT: Denies blurred vision, vision changes, or eye pain. Denies hemoptysis CARDIOVASCULAR: Denies chest pain or pressure. RESPIRATORY: No shortness of breath. GASTROINTESTINAL: See HPI for pertinent findings HEMATOLOGIC: Denies bleeding disorders. GENITOURINARY: Denies any blood in urine or increased urinary frequency. SKIN: Denies pruitis. Denies rash. PHYSICAL EXAM: VITAL SIGNS: Reviewed GENERAL: Well-developed in no acute distress. HEENT: No sclera icterus. Extraocular movements grossly intact. Moist buccal mucosa. Head is atraumatic, normocephalic. No nasal drainage. ABDOMEN: Soft. Nondistended. Nontender NEUROLOGIC: Alert and oriented. Cranial nerves II through XII grossly intact. LABORATORY DATA: WBCs 8.3 Hgb 13.9 down to 11.4 platelets 409 Sed rate 55 CRP 12.7 IMAGING: ASSESSMENT: 1. Ulcerative colitis flareup 2. Myocarditis, evaluated by cardiology PLAN: -Start IV steroids for ulcerative colitis flareup -Repeat CBC in a.m. -Downgrade diet to full liquids -Continue to monitor Physician Microfabrication Engineer Manager note has been reviewed by physician. Signing provider agrees with the documented findings, assessment, and plan of care. Past Medical History Past Medical History: Asthma Additional Past Medical History / Comment(s): Taking Acutane for acne. Has stopped for one month. Diarrhea with blood. ulcerative colitis History of Any Multi-Drug Resistant Organisms: None Reported Past Surgical History: No Surgical Hx Reported Additional Past Anesthesia/Blood Transfusion Reaction / Comm: Has never had anesthesia. Past Psychological History: No Psychological Hx Reported Smoking Status: Never smoker Past Alcohol Use History: None Reported Past Drug Use History: None Reported - Past Family History Mother Family Medical History: No Reported History Medications and Allergies Home Medications Medication Instructions Recorded Confirmed Type Albuterol Inhaler [Ventolin Hfa 2 puff INHALATION RT-QID PRN 01/25/24 01/25/24 History Inhaler] Mesalamine [Lialda] 1.2 gm PO BID 01/25/24 01/25/24 History norethindrone-e.estradioL-iron 1 tab PO DAILY 01/25/24 01/25/24 History [Junel Fe 1.5 mg-30 Mcg Tablet] Metoprolol Tartrate [Lopressor] 25 mg PO BID #60 tab 01/28/24 Rx predniSONE [Deltasone] 40 mg PO DAILY #20 tab 01/28/24 Rx Allergies Allergy/AdvReac Type Severity Reaction Status Date / Time cephalexin monohydrate Allergy Anaphylaxis Verified 01/25/24 15:25 [From Keflex] propofol AdvReac Anaphylaxis Verified 01/25/24 15:25 Surgical - Exam Vital Signs Temp Pulse Resp BP Pulse Ox 97.8 F 150 H 18 125/79 99 01/25/24 14:31 01/25/24 14:31 01/25/24 14:31 01/25/24 14:31 01/25/24 14:31 Results - Labs 01/27/24 04:12 01/25/24 15:07
[2024-01-28] MEDS: methylPREDNISolone SOD SUCCI 40 MG/ML 1 ML VIAL IV SCH (16:17)
[2024-01-29 07:38] LABS: Basophils % (A) 0 %; Eosinophils % (A) 0 %; HCT 37.1 % (34.0-46.0); HGB 11.8 gm/dL (11.4-16.0); Lymphocytes # (A) 1.3 k/uL (1.0-4.8); Lymphocytes % (A) 18 %; MCH 29.9 pg (25.0-35.0); MCHC 31.8 g/dL (31.0-37.0); MCV 94.1 fL (80.0-100.0); Mean Platelet Volume 6.8; Monocytes # (A) 0.3 k/uL (0-1.0); Monocytes % (A) 4 %; Neutrophils # (A) 5.4 k/uL (1.3-7.7); Neutrophils % (A) 77 %; Platelet Count 435 k/uL (150-450); RBC 3.94 m/uL (3.80-5.40); RDW 12.7 % (11.5-15.5)
[2024-01-29 07:56] VITALS: RESP 14
--- NOTE | 2024-01-29 11:44 | P.PN ---
Subjective HISTORY OF PRESENT ILLNESS: Patient examined this morning at the bedside. Patient currently denies any chest pain or pressure. She denies any shortness of breath. Vital signs are stable. Echocardiogram completed revealing ejection fraction 55 to 60%, no obvious regional wall motion abnormalities, no no significant valvular dysfunction, and some evidence of pericardial thickening. 01/29/2024 Patient examined this morning at the bedside. Patient currently denies any chest pain or pressure. She denies any shortness of breath. She was seen by general surgery and started on IV steroids. Patient states that she has not had any bowel movements today. Vital signs are stable. PHYSICAL EXAM: VITAL SIGNS: Reviewed. GENERAL: Well-developed in no acute distress. NECK: Supple. No JVD or thyromegaly LUNGS: Respirations even and unlabored. Lungs essentially clear to auscultation bilaterally. HEART: Regular rate and rhythm. S1 and S2 heard. EXTREMITIES: Normal range of motion. No clubbing or cyanosis. Peripheral pulses intact. No lower extremity edema ASSESSMENT: Suspected acute myocarditis Chest pain, secondary to above, acute coronary syndrome ruled out Elevated troponins, secondary to myocarditis, ACS ruled out Acute exacerbation of ulcerative colitis Sinus tachycardia PLAN: Continue colchicine and metoprolol Patient is stable for discharge home today from a cardiac standpoint Patient to follow-up postdischarge with Dr. Wood Recommend outpatient cardiac MRI We will sign off. Please reconsult if needed. Nurse practitioner note has been reviewed by physician. Signing provider agrees with the documented findings, assessment, and plan of care documented by ELECTROENCEPHALOGRAPHIC TECHNICIAN as a scribe. Objective - Vital Signs Vital signs: Vital Signs Temp 98.1 F 01/29/24 07:55 Pulse 79 01/29/24 07:55 Resp 14 01/29/24 07:55 BP 102/65 01/29/24 07:55 Pulse Ox 99 01/29/24 07:55 FiO2 Intake & Output 01/28/24 01/29/24 01/29/24 18:59 06:59 18:59 Intake Total 180 Output Total 2 Balance -2 180 Weight 65.7 kg Intake: Oral 180 Output: Urine 2 Other: Voiding Method Toilet Toilet Toilet # Voids 2 1 # Bowel Movements 3 0 - Labs CBC & Chem 7: 01/29/24 06:12 01/25/24 15:07
[2024-01-29 16:21] VITALS: BP 106/72; PULSE 78; TEMP 97.9
[2024-01-30 00:58] LABS: Mumps Virus IgM Antibody 0.21 IV (<=0.79)
--- NOTE | 2024-02-01 05:41 | DS ---
DISCHARGE SUMMARY CHIEF COMPLAINT: Chest pain. HISTORY OF PRESENT ILLNESS AND PHYSICAL EXAMINATION: Details of this lady's history and physical can be found in the initial workup. LABORATORY STUDIES: While she was in the hospital, she had laboratory studies, details of which can be found in the laboratory section of her chart. COURSE IN THE HOSPITAL: After admission, she was placed on bedrest, started on intravenous fluids and was seen by Cardiology. Her troponins were markedly elevated and it was felt that this was probably related to a myocarditis either secondary to her ulcerative colitis or her chemotherapies. While in the hospital, she had no further chest pain or any other difficulties including shortness of breath. She was doing well and it was felt that she could be discharged. Her mother wanted her to be seen by Dr. Bingham for GI evaluation, but Dr. Bingham was out of town. The mother then requested that she be seen by a surgeon and the surgeon put her on high-dose steroids. The next day, the mother decided that she wanted to take the patient home. She will go home on her usual medications, but no steroids and that she had only been on them for 2 or 3 days. She will be followed up in the office. FINAL DIAGNOSES: 1. Chest pain with elevated troponin. 2. Myocarditis. 3. Ulcerative colitis. OPERATIONS: Cardiology and General Surgery. She is improved. MMODL / IJN: [id number] /
--- NOTE | 2024-02-01 07:33 | PN ---
PROGRESS NOTE DATE OF SERVICE: 01/28/2024 CHIEF COMPLAINT: Chest pain. HISTORY OF PRESENT ILLNESS: This lady is doing well. Pain is gone. She can probably go home today. PHYSICAL EXAMINATION: CHEST: Clear. CARDIAC: Normal. ABDOMEN: Soft, nontender. IMPRESSION: 1. Chest pain. 2. Cardiomyopathy. 3. Ulcerative colitis. PLAN: Home today. MMODL / IJN: [id number] /
== END 2024-01-29 17:51 | disposition home or self-care (01) | DRG 207 ==
LOC: EC 14:27 → 3SCARD 17:47
PROVIDERS: ADMIT Family Medicine; ATTEND Family Medicine
DX: I40.9 Acute myocarditis, unspecified (principal); I47.11 Inappropriate sinus tachycardia, so stated; K51.911 Ulcerative colitis, unspecified with rectal bleeding; J45.909 Unspecified asthma, uncomplicated; I42.9 Cardiomyopathy, unspecified; Z79.899 Other long term (current) drug therapy; Z82.49 Family history of ischemic heart disease and other diseases of the circulatory system; Z88.1 Allergy status to other antibiotic agents; Z88.8 Allergy status to other drugs, medicaments and biological substances
CPT/HCPCS: 36415; 71046; 71275; 80053; 80306; 83735; 83880; 84484; 84702; 85025; 85610; 85652; 85730; 86140; 86658; 86735; 87496; 87498; 87502; 87521; 87529; 87535; 87634; 87635; 87798; 93005; 93306; 94760; 96361; 96374; 96375; 99285

== ENCOUNTER 2024-07-18 13:01 | Observation (INO) | payer BC, OTHER ==
--- NOTE | 2024-07-18 13:48 | ED ---
Chest Pain HPI - General Chief Complaint: Chest Pain Stated Complaint: chest pain Time Seen by Provider: 07/18/24 13:47 Source: patient, family (mother), RN notes reviewed, old records reviewed Mode of arrival: ambulatory Limitations: no limitations - History of Present Illness Initial Comments: 19-year-old female with a past medical history significant of ulcerative colitis presenting to the ER for evaluation of chest discomfort. Patient mother is aiding in HPI. Mother states in January 2024 patient was admitted for myocarditis. Patient has been following up with Dr. Wood outpatient. Patient was on metoprolol daily but was recently only prescribed as needed. Patient states around 3 AM she started to feel a heaviness sensation to her chest. Patient denies any radiation of this discomfort. She denies any shortness of breath, dizziness, lightheadedness, nausea or vomiting. Patient reports she contacted her mother around 11:30 AM and her mother told her to take a metoprolol which she did. Patient reports symptoms persist and mother contacted on-call cardiology, Dr. Bingham who advised her to come to the ER for further eval uation. Patient denies recent travel, smoking or history of blood clots. Patient does take control. Patient denies any other complaints at this time. - Related Data Home Medications Medication Instructions Recorded Confirmed Mesalamine [Lialda] 1.2 gm PO BID 01/25/24 07/18/24 norethindrone-e.estradioL-iron 1 tab PO DAILY@1400 01/25/24 07/18/24 [Junel Fe 1.5 mg-30 Mcg Tablet] Entyvio Infusion 300 mg IV Q56D 07/18/24 07/18/24 Metoprolol Succinate (ER) [Toprol 25 mg PO ONETIME 07/18/24 07/18/24 Xl] Allergies Allergy/AdvReac Type Severity Reaction Status Date / Time cephalexin monohydrate Allergy Anaphylaxis Verified 07/18/24 15:01 [From Keflex] propofol AdvReac Anaphylaxis Verified 07/18/24 15:01 Review of Systems ROS Statement: Those systems with pertinent positive or pertinent negative responses have been documented in the HPI. ROS Other: All systems not noted in ROS Statement are negative. EKG Findings - EKG Comments: EKG Findings:: EKG taken at 13: 16 showing a sinus tachycardia. No ST segment elevations or depressions. No T wave inversions. Ventricular rate 107, OK interval 142, QRS duration 83, QT/QTc 315/378. Past Medical History Past Medical History: Asthma Additional Past Medical History / Comment(s): Taking Acutane for acne. Has stopped for one month. Diarrhea with blood. ulcerative colitis History of Any Multi-Drug Resistant Organisms: None Reported Past Surgical History: No Surgical Hx Reported Additional Past Anesthesia/Blood Transfusion Reaction / Comment(s): Has never had anesthesia. Past Psychological History: No Psychological Hx Reported Smoking Status: Never smoker Past Alcohol Use History: None Reported Past Drug Use History: None Reported - Past Family History Mother Family Medical History: No Reported History General Exam Limitations: no limitations General appearance: alert, in no apparent distress Respiratory exam: Present: normal lung sounds bilaterally. Absent: respiratory distress, wheezes, rales, rhonchi, stridor Cardiovascular Exam: Present: normal rhythm, tachycardia, normal heart sounds Neurological exam: Present: alert, oriented X3, CN II-XII intact Skin exam: Present: warm, dry, intact, normal color. Absent: rash Course Vital Signs 07/18/24 07/18/24 13:03 15:08 Temperature 97.9 F Pulse Rate 107 H 107 H Respiratory 18 16 Rate Blood Pressure 109/76 97/66 O2 Sat by Pulse 99 98 Oximetry - Reevaluation(s) Reevaluation #1: 07/18/24 14:17 Patient reevaluated no signs of acute distress. Patient updated on elevated D- dimer results and CT chest pending. Patient agreeable. Case discussed with Dr. Key by my attending, Dr. Nolan for cardiac observation. Chest Pain MDM - MDM Was pt. sent in by a medical professional or institution (, PA, SOCIAL MEDIA ANALYST, urgent care, hospital, or halfway...) When possible be specific @ -No Did you speak to anyone other than the patient for history (EMS, parent, family, police, friend...)? What history was obtained from this source @ -Patient's mother, at bedside, aiding in HPI past medical history. Did you review nursing and triage notes (agree or disagree)? Why? @ -I reviewed and agree with nursing and triage notes Were old charts reviewed (outside hosp., previous admission, EMS record, old EKG, old radiological studies, urgent care reports/EKG's, halfway records)? Report findings @ -ER visit and admission from 01-25-2024. Differential Diagnosis (chest pain, altered mental status, abdominal pain women, abdominal pain men, vaginal bleeding, weakness, fever, dyspnea, syncope, headache, dizziness, GI bleed, back pain, seizure, CVA, palpatations, mental health, musculoskeletal)? @ -Differential Chest Pain: Stable Angina, Unstable Angina, STEMI, NSTEMI Aortic Dissection, Pneumothorax, Musculoskeletal, Esophageal Spasm GERD, Cholecystitis, Pancreatitis, Zoster, this is not meant to be an all-inclusive list. EKG interpreted by me (3pts min.). @ -As above X-rays interpreted by me (1pt min.). @ -None done CT interpreted by me (1pt min.). @ -CTA chest is negative for acute pulmonary embolism. No acute thoracic process. U/S interpreted by me (1pt. min.). @ -None done What testing was considered but not performed or refused? (CT, X-rays, U/S, labs)? Why? @ -None What meds were considered but not given or refused? Why? @ -Nitro considered but held given patient's borderline low blood pressure. Did you discuss the management of the patient with other professionals (professionals i.e. , PA, SOCIAL MEDIA ANALYST, lab, RT, psych nurse, director social, clinical academic allergist, teacher, facilities officer, rehabilitation case coordinator)? Give summary @ -Case discussed with Dr. Key by my attending, Dr. Nolan for cardiac observation admission. Was smoking cessation discussed for >3mins.? @ -No Was critical care preformed (if so, how long)? @ -No Were there social determinants of health that impacted care today? How? (Homelessness, low income, unemployed, alcoholism, drug addiction, transportation, low edu. Level, literacy, decrease access to med. care, prison, rehab)? @ -No Was there de-escalation of care discussed even if they declined (Discuss DNR or withdrawal of care, Hospice)? DNR status @ -No What co-morbidities impacted this encounter? (DM, HTN, Smoking, COPD, CAD, Cancer, CVA, ARF, Chemo, Hep., AIDS, mental health diagnosis, sleep apnea, morbid obesity)? @ -History of ulcerative colitis on Entyvio. History of myocarditis Was patient admitted / discharged? Hospital course, mention meds given and route, prescriptions, significant lab abnormalities, going to OR and other pertinent info. @ -Admitted. 19-year-old female presented the ER for evaluation of chest pain. Upon arrival, patient tachycardic 107 bpm vitals otherwise acceptable limits. Patient in no significant distress nontoxic-appearing. Cardiac workup remarkable for an elevated troponin at 0.047. This is decreased from 01-25-2024 at 0.242. D-dimer elevated at 0.74 however CTA chest is negative for acute evidence of pulmonary embolism. EKG showing sinus tachycardia with no acute evidence of infarct or ischemia. Urinalysis with large leukocyte esterases, 16WBCs, rare bacteria. Urine sent for culture. hCG negative. Given patient's medical history of myocarditis with elevated troponin and presenting symptom admission was considered and discussed with Dr. Key by my attending Dr. Nolan. Patient received aspirin and IV fluid bolus. Cardiology on consult. Echo and second troponin ordered and pending at time of admission. Patient agreeable and admitted in stable condition. Case discussed with ED attending of Dr. Nolan. Undiagnosed new problem with uncertain prognosis? @ -No Drug Therapy requiring intensive monitoring for toxicity (Heparin, Nitro, Insulin, Cardizem)? @ -No Were any procedures done? @ -No Diagnosis/symptom? @ -Elevated troponin/chest pain Acute, or Chronic, or Acute on Chronic? @ -Acute Uncomplicated (without systemic symptoms) or Complicated (systemic symptoms)? @ -Complicated Side effects of treatment? @ -No Exacerbation, Progression, or Severe Exacerbation? @ -No Poses a threat to life or bodily function? How? (Chest pain, [place], [place], pneumonia, PE, COPD, DKA, ARF, appy, cholecystitis, CVA, Diverticulitis, Homicidal, Suicidal, threat to staff... and all critical care pts) @ -Yes Disposition Clinical Impression: Chest pain Disposition: ADMITTED IP TO THIS HOSP Condition: Stable Referrals: Benny Key MD [Primary Care Provider] - 1-2 days Time of Disposition: 16:06
[2024-07-18 13:51] LABS: Basophils # (A) 0.03 10*3/uL (0.00-0.10); Basophils % (A) 0.3 %; Eosinophils # (A) 0.14 10*3/uL (0.04-0.35); Eosinophils % (A) 1.4 %; HCT 40.9 % (37.2-46.3); HGB 13.8 g/dL (12.0-15.0); Lymphocytes # (A) 1.81 10*3/uL (0.90-5.00); Lymphocytes % (A) 18.7 %; MCH 30.4 pg (27.0-32.0); MCHC 33.7 g/dL (32.0-37.0); MCV 90.1 fL (80.0-97.0); Monocytes % (A) 8.3 %; Neutrophils # (A) 6.87 10*3/uL (1.80-7.70); Neutrophils % (A) 71.1 %; Platelet Count 397 10*3/uL (140-440); RBC 4.54 10*6/uL (4.10-5.20); RDW 13.8 % (11.5-14.5); WBC 9.67 10*3/uL (4.50-10.00)
[2024-07-18 14:03] LABS: ALT 14 U/L (4-34); AST 21 U/L (14-36); African American GFR (CKD) >90 (>60 ml/min/1.73 sqM); Albumin 4.8 g/dL (3.5-5.0); Alkaline Phosphatase 106 U/L (38-126); Anion Gap 15 mmol/L; Blood Urea Nitrogen 9 mg/dL (7-17); Carbon Dioxide 20 mmol/L (22-30); Chloride 104 mmol/L (98-107); Glucose 88 mg/dL (74-99); Non-African American GFR(CKD) >90 (>60 ml/min/1.73 sqM); Potassium 4.2 mmol/L (3.5-5.1); Sodium 139 mmol/L (137-145); Total Bilirubin 0.8 mg/dL (0.2-1.3); Total Protein 8.4 g/dL (6.3-8.2)
[2024-07-18 14:03] LABS: Appearance,Urine Clear (Clear); Bacteria,Urine Rare /hpf; Bilirubin,Urine Negative (Negative); Blood,Urine Trace (Negative); Color,Urine Colorless; Glucose,Urine (UA) Negative (Negative); Ketones,Urine Negative (Negative); Leukocyte Esterase,Urine Large (Negative); Nitrite,Urine Negative (Negative); PH, Urine 6.5 (5.0-8.0); Protein,Urine Negative (Negative); RBC,Urine 10 /hpf (0-5); Specific Gravity,Urine 1.003 (1.001-1.035); Squamous Epithelial Cell,Urine 1 /hpf (0-4); Urobilinogen,Urine <2.0 mg/dL (<2.0); WBC,Urine 16 /hpf (0-5)
[2024-07-18 14:08] LABS: Partial Thromboplastin Time 24.8 sec (22.0-30.0); Prothrombin Time 10.9 sec (10.0-12.5)
--- NOTE | 2024-07-18 14:40 | CT ---
EXAMINATION TYPE: CT chest angio for PE CT DLP: 259.9 mGycm, Automated exposure control for dose reduction was used. DATE OF EXAM: 07/18/2024 2:35 PM COMPARISON: CTA chest 01/25/2024 CLINICAL INDICATION:Female, 19 years old with history of Chest heaviness/elevated D-dimer; CP. Chest heaviness/elevated D-dimer. Hx of Myocarditis last January. TECHNIQUE/CONTRAST: CTA scan of the thorax is performed with IV Contrast, patient injected with 100 ml mL of Isovue 370, pulmonary embolism protocol. MIP images are created and reviewed. FINDINGS: Pulmonary Artery: There is no evidence for a filling defect within the pulmonary vasculature to sugge st acute pulmonary embolism. The pulmonary artery is of normal size. Lungs/Pleura: No evidence of focal consolidation, pleural effusion or pneumothorax. No suspicious pul monary nodule or mass. Airway: Large airways are patent. Heart: Size within normal limits.No pericardial effusion. No significant coronary artery calcificatio ns. Vasculature: No evidence of aortic aneurysm. Mediastinum: No evidence of adenopathy. Residual thymic tissue demonstrated. Musculoskeletal: No acute osseous abnormalities Soft Tissues: Unremarkable. Lower neck: No significant findings. Upper Abdomen: No significant findings. IMPRESSION: No evidence of pulmonary embolism or acute thoracic process. [facility], , 07/18/2024 2:37 PM
[2024-07-18] MEDS: NITROGLYCERIN SL TABS 0.4 MG TAB SUBLINGUAL STA (15:46)
[2024-07-18] MEDS: SODIUM CHLORIDE 0.9% 1,000 ML IV ONE (15:48)
[2024-07-18] MEDS: ASPIRIN 81 MG PO STA (15:48)
[2024-07-18] MEDS ORDERED: NALOXONE 0.4 MG/ML 1 ML VIAL IV PRN (15:55)
[2024-07-18] MEDS: SODIUM CHLORIDE 0.9% 1,000 ML IV SCH (17:36)
--- NOTE | 2024-07-18 17:49 | CA ---
Transthoracic Echo Report Name: Lauren Pereira Age: 19 Gender: F : 2005 Exam Date: 07/18/2024 15:41 Exam Location: [facility] Ht (in): 61 Wt (lb): 145 Ordering Physician: Patience Hopkins Attending/Referring Phys: Psychiatric Aides Teacher Michelle Bae RDCS Procedure CPT: Indications: Chest pain elevated troponin Cardiac Hx: Technical Quality: Good Contrast 1: Total Dose (mL): Contrast 2: Total Dose (mL): MEASUREMENTS (Male / Female) Normal Values 2D ECHO LV Diastolic Diameter PLAX 4.6 cm 4.2 - 5.9 / 3.9 - 5.3 cm LV Systolic Diameter PLAX 2.7 cm IVS Diastolic Thickness 1.1 cm 0.6 - 1.0 / 0.6 - 0.9 cm LVPW Diastolic Thickness 0.7 cm 0.6 - 1.0 / 0.6 - 0.9 cm LV Relative Wall Thickness 0.4 LVOT Diameter 1.7 cm LV Diastolic Volume MOD 4C 97.3 cm??? LV Systolic Volume MOD 4C 42.8 cm??? LV Ejection Fraction MOD 4C 56.0 % LV Cardiac Index MOD 4C 3395.4 cm???/min???m??? LV Diastolic Length 4C 7.7 cm LV Systolic Length 4C 6.7 cm LV Cardiac Index 4C AL 3737.2 cm???/min???m??? LV Diastolic Volume MOD 2C 87.6 cm??? LV Systolic Volume MOD 2C 36.0 cm??? LV Ejection Fraction MOD 2C 58.9 % LV Cardiac Index MOD 2C 3212.9 cm???/min???m??? LV Diastolic Length 2C 7.7 cm LV Systolic Length 2C 6.6 cm LV Cardiac Index 2C AL 3530.2 cm???/min???m??? DOPPLER AV Peak Velocity 145.5 cm/s AV Peak Gradient 8.5 mmHg AV Mean Velocity 100.1 cm/s AV Mean Gradient 4.6 mmHg AV Velocity Time Integral 23.4 cm LVOT Peak Velocity 113.6 cm/s LVOT Peak Gradient 5.2 mmHg LVOT Velocity Time Integral 17.7 cm LVOT Stroke Volume 42.0 cm??? LVOT Stroke Volume Index 25.5 ml/m??? LVOT Cardiac Index 2617.8 cm???/min???m??? AV Area Cont Eq vti 1.8 cm??? AV Area Cont Eq pk 1.9 cm??? PV Peak Velocity 77.4 cm/s PV Peak Gradient 2.4 mmHg FINDINGS Left Ventricle Left ventricular ejection fraction is estimated at 55-60 %. Normal septal wall thickness. Left ventricular cavity size normal. No obvious regional wall motion abnormalities. Right Ventricle Normal right ventricular size and function. Unable to estimate the right ventricular systolic pressure. Right Atrium Normal right atrial size. Left Atrium Normal left atrial size. Mitral Valve Structurally normal mitral valve. No mitral stenosis, regurgitation or prolapse. Aortic Valve Trileaflet aortic valve. No aortic valve stenosis or regurgitation. Tricuspid Valve Structurally normal tricuspid valve. No tricuspid stenosis, regurgitation or prolapse. Pulmonic Valve Structurally normal pulmonic valve. No pulmonic stenosis. Trace pulmonic regurgitation. Pericardium No pericardial effusion. Thickened pericardium. Aorta Aortic root and proximal ascending aorta not assessed. CONCLUSIONS Left ventricular ejection fraction 55 to 60% No mitral regurgitation No tricuspid regurgitation No pericardial effusion Previewed by: Dr. Alexander Ridley DO (Electronically Signed) Final Date: 18 Jul 2024 17:48
[2024-07-18] MEDS: ACETAMINOPHEN TAB 325 MG TAB PO PRN (21:24)
[2024-07-19] MEDS: NITROGLYCERIN SL TABS 0.4 MG TAB SUBLINGUAL PRN (04:21)
--- NOTE | 2024-07-19 10:24 | P.CRDCN ---
History of Present Illness History of present illness: HISTORY OF PRESENT ILLNESS: This is a 19-year-old female with a past medical history significant for myocarditis and ulcerative colitis. Patient follows in the office with Dr. Wood. We have been asked to see the patient in consultation for chest pain. Patient examined at the bedside. Patient states yesterday around noon she started developing chest discomfort. She states the pain was in the middle of her chest and states that it was worse with deep inspiration. She denied any radiation of the pain. Denies any shortness of breath. The patient does have a history of myocarditis in January 2024. She underwent a cardiac MRI revealing evidence of myocarditis involving the inferior wall however no myocardial damage reported. She does report receiving nitro overnight a few times. She continues to report chest pain this morning with deep inspiration that is unchanged from admission. She reports a history of ulcerative colitis and states that she received her injection a few weeks ago. She states she was started on this in March. DIAGNOSTICS: - EKG reveals sinus tachycardia with no signs of acute ischemia. - Chest CT: Negative for pulmonary embolism or acute thoracic process - Laboratory data: WBC 9.67. Hemoglobin 13.8. Platelet count 397. D-dimer 0.74. Troponin 0.047. 2.220. TSH 0.960. - Current home cardiac medications include metoprolol succinate 25 mg (frequency unknown) - Echocardiogram obtained this admission reveals ejection fraction 55 to 60%, no obvious regional wall motion abnormalities, no significant valvular disease and no pericardial effusion - Cardiac catheterization history: Patient denies REVIEW OF SYSTEMS: At the time of my exam: CONSTITUTIONAL: Denies fever or chills. HEENT: Denies blurred vision, vision changes, or eye pain. Denies hemoptysis CARDIOVASCULAR: Denies chest pain. Denies orthopnea. Denies PND. Denies palpita tions RESPIRATORY: Denies shortness of breath. GASTROINTESTINAL: Denies abdominal pain. Denies nausea or vomiting. HEMATOLOGIC: Denies bleeding disorders. GENITOURINARY: Denies any blood in urine. SKIN: Denies pruitis. Denies rash. PHYSICAL EXAM: VITAL SIGNS: Reviewed. GENERAL: Well-developed in no acute distress. HEENT: Head is normocephalic. Pupils are equal, round. Sclerae anicteric. Mucous membranes of the mouth are moist. Neck supple. No JVD or thyromegaly LUNGS: Respirations even and unlabored. Lungs essentially clear to auscultation bilaterally. HEART: Tachycardic. Regular rate and rhythm. S1 and S2 heard. ABDOMEN: Soft. Nondistended. Nontender. EXTREMITIES: Normal range of motion. No clubbing or cyanosis. Peripheral pulses intact. No lower extremity edema NEUROLOGIC: Awake and alert. Oriented x 3. ASSESSMENT: Chest pain Myocarditis Elevated troponins, secondary to myocarditis, no evidence of acute coronary syndrome History of myocarditis, January 2024, with cardiac MRI showing evidence of myocarditis involving inferior wall however no myocardial damage reported PLAN: Obtain 2D echo to assess cardiac structure and function Check CRP and ESR Recommend eventual evaluation at tertiary care center for myocarditis Further recommendations pending patient course Nurse practitioner note has been reviewed by physician. Signing provider agrees with the documented findings, assessment, and plan of care documented by WIRE INSPECTOR as a scribe. Past Medical History Past Medical History: Asthma Additional Past Medical History / Comment(s): Taking Acutane for acne. Has stopped for one month. Diarrhea with blood. ulcerative colitis History of Any Multi-Drug Resistant Organisms: None Reported Past Surgical History: No Surgical Hx Reported Past Anesthesia/Blood Transfusion Reactions: Previous Problems w/ Anesthesia Additional Past Anesthesia/Blood Transfusion Reaction / Comment(s): colonoscopy- had reaction to the propofol Past Psychological History: No Psychological Hx Reported Smoking Status: Never smoker Past Alcohol Use History: None Reported Past Drug Use History: None Reported - Past Family History Mother Family Medical History: No Reported History Medications and Allergies Home Medications Medication Instructions Recorded Confirmed Type Mesalamine [Lialda] 1.2 gm PO BID 01/25/24 07/18/24 History norethindrone-e.estradioL-iron 1 tab PO DAILY@1400 01/25/24 07/18/24 History [Junel Fe 1.5 mg-30 Mcg Tablet] Entyvio Infusion 300 mg IV Q56D 07/18/24 07/18/24 History Metoprolol Succinate (ER) [Toprol 25 mg PO ONETIME 07/18/24 07/18/24 History Xl] Allergies Allergy/AdvReac Type Severity Reaction Status Date / Time cephalexin monohydrate Allergy Anaphylaxis Verified 07/18/24 15:01 [From Keflex] propofol AdvReac Anaphylaxis Verified 07/18/24 15:01 Physical Exam Vitals: Vital Signs Temp Pulse Pulse Resp BP BP Pulse Ox 07/19/24 04:02 98.3 F 109 H 16 110/71 97 07/19/24 02:30 120 H 16 07/18/24 23:16 97.7 F 120 H 16 118/77 98 07/18/24 21:00 98.1 F 120 H 16 116/77 100 07/18/24 20:05 98.7 F 120 H 18 110/75 98 07/18/24 17:33 115 H 16 102/73 98 07/18/24 15:08 107 H 16 97/66 98 07/18/24 13:03 97.9 F 107 H 18 109/76 99 Intake and Output 07/18/24 07/19/24 07/19/24 22:59 06:59 14:59 Intake Total 500 Balance 500 Intake: Oral 500 Other: Voiding Method Toilet Toilet # Voids 2 Weight 65.771 kg 71.5 kg Results 07/18/24 13:40 07/18/24 13:40 Cardiac Enzymes 07/18/24 07/18/24 07/18/24 Range/Units 13:40 13:40 17:04 AST 21 (14-36) U/L Troponin I 0.047 H* 2.220 H* (0.000-0.034) ng/mL Coagulation 07/18/24 Range/Units 13:40 PT 10.9 (10.0-12.5) sec APTT 24.8 (22.0-30.0) sec CBC 07/18/24 Range/Units 13:40 WBC 9.67 (4.50-10.00) 10*3/uL RBC 4.54 (4.10-5.20) 10*6/uL Hgb 13.8 (12.0-15.0) g/dL Hct 40.9 (37.2-46.3) % Plt Count 397 (140-440) 10*3/uL Comprehensive Metabolic Panel 07/18/24 Range/Units 13:40 Sodium 139 (137-145) mmol/L Potassium 4.2 (3.5-5.1) mmol/L Chloride 104 (98-107) mmol/L Carbon Dioxide 20 L (22-30) mmol/L BUN 9 (7-17) mg/dL Creatinine 0.68 (0.52-1.04) mg/dL Glucose 88 (74-99) mg/dL Calcium 10.0 (8.4-10.2) mg/dL AST 21 (14-36) U/L ALT 14 (4-34) U/L Alkaline Phosphatase 106 (38-126) U/L Total Protein 8.4 H (6.3-8.2) g/dL Albumin 4.8 (3.5-5.0) g/dL Current Medications Generic Name Dose Route Start Last Admin Trade Name Mishaq PRN Reason Stop Dose Admin Acetaminophen 650 mg 07/18/24 15:55 07/18/24 21:24 Acetaminophen Tab 325 Mg Tab PO 650 mg Q6HR PRN Administration Mild Pain or Fever > 100.5 Sodium Chloride 1,000 mls @ 75 mls/hr 07/18/24 16:00 07/19/24 04:52 Saline 0.9% IV 75 mls/hr .[id number] BLU Administration Naloxone HCl 0.2 mg 07/18/24 15:55 Naloxone 0.4 Mg/Ml 1 Ml Vial IV Q2M PRN Opioid Reversal Nitroglycerin 0.4 mg 07/18/24 15:55 07/19/24 04:43 Nitroglycerin Sl Tabs 0.4 Mg Tab SUBLINGUAL 0.4 mg Q10M PRN Administration Chest Pain Non-Formulary Medication 1 tab 07/19/24 14:00 Norethindrone-E.Estradiol-Iron [Junel Fe 1.5 Mg-30 Mcg Tablet] PO DAILY@1400 BLU Intake and Output 07/18/24 07/19/24 07/19/24 22:59 06:59 14:59 Intake Total 500 Balance 500 Intake: Oral 500 Other: Voiding Method Toilet Toilet # Voids 2 Weight 65.771 kg 71.5 kg 07/18/24 13:40 07/18/24 13:40
--- NOTE | 2024-07-19 14:39 | P.HPIM ---
History of Present Illness H&P Date: 07/19/24 History of present illness; Patient is a 19-year-old female with ulcerative colitis who presents with chest discomfort. Mother states in January 2024 patient was admitted for myocarditis. Yesterday at 3 AM she started to feel a heaviness sensation to her chest. Patient denies any radiation of this discomfort. She states pain is worse with inspiration. When patient called Dr. Bingham, he advised to come inpatient for evaluation. At this time she continues to have chest pain, which was improved by Nitrostat. Patient does have extensive family history of autoimmune diseases. Denying other symptoms at this time, including shortness of breath, weakness, nausea, vomiting. Spoke with the ER physician, patient admission was accepted by internal medicine service for treatment. REVIEW OF SYSTEMS: Pertinent positives and negatives noted in HPI. PHYSICAL EXAMINATION: Vitals reviewed GENERAL: Resting comfortably in bed. EYES: PERRL, no scleral injection or icterus. No vision loss HENT: Normocephalic, atraumatic, hearing grossly intact, moist mucous membranes NECK: No tracheal deviation, full range of motion. CARDIOVASCULAR: S1 and S2 present. Tachycardia no murmurs, rubs, or gallops. PULMONARY: Chest is clear to auscultation, no wheezing, rhonchi, or crackles. ABDOMEN: Soft, nontender, nondistended. No palpable organomegaly. MUSCULOSKELETAL: No apparent joint swelling and deformities. EXTREMITIES: No apparent cyanosis, clubbing. No pedal edema. NEUROLOGICAL: Alert and oriented. Gross neurological examination with no apparent focal deficits. SKIN: No apparent rashes. ER FINDINGS: Labs significant for D-dimer 0.74, bicarbonate 20, troponin 0.047 => 2.22, TSH 0.96, UA with findings of trace blood, large leukocyte esterase, WBC 16 EKG independently interpreted showed sinus tachycardia heart rate of 107, QTc 378, no ST segment elevation or depression seen, no T-wave inversions seen. CTA chest with no evidence of pulmonary embolism or acute thoracic process Echocardiogram with findings of LVEF 55 to 60% no pericardial effusion Assessment and Plan: #Chest pain #Myocarditis #History of myocarditis #Elevated troponins secondary to myocarditis, no evidence of ACS #Tachycardia Troponin elevated, TSH is WNL CTA chest with no evidence of pulmonary embolism Echo completed, reviewed Cardiology consulted #Asymptomatic bacteriuria No antibiotics needed at this time Anticipated discharge place: Home Anticipated discharge time: Tomorrow Dr. Ying seen patient with resident, present during exam, and agreed with findings. Dictation was produced using [employer] dictation software. Please excuse any g rammatical, word or spelling errors. Past Medical History Past Medical History: Asthma Additional Past Medical History / Comment(s): Taking Acutane for acne. Has stopped for one month. Diarrhea with blood. ulcerative colitis History of Any Multi-Drug Resistant Organisms: None Reported Past Surgical History: No Surgical Hx Reported Past Anesthesia/Blood Transfusion Reactions: Previous Problems w/ Anesthesia Additional Past Anesthesia/Blood Transfusion Reaction / Comment(s): colonoscopy- had reaction to the propofol Past Psychological History: No Psychological Hx Reported Smoking Status: Never smoker Past Alcohol Use History: None Reported Past Drug Use History: None Reported - Past Family History Mother Family Medical History: No Reported History Medications and Allergies Home Medications Medication Instructions Recorded Confirmed Type Mesalamine [Lialda] 1.2 gm PO BID 01/25/24 07/18/24 History norethindrone-e.estradioL-iron 1 tab PO DAILY@1400 01/25/24 07/18/24 History [Junel Fe 1.5 mg-30 Mcg Tablet] Entyvio Infusion 300 mg IV Q56D 07/18/24 07/18/24 History Metoprolol Succinate (ER) [Toprol 25 mg PO ONETIME 07/18/24 07/18/24 History Xl] Allergies Allergy/AdvReac Type Severity Reaction Status Date / Time cephalexin monohydrate Allergy Anaphylaxis Verified 07/18/24 15:01 [From Keflex] propofol AdvReac Anaphylaxis Verified 07/18/24 15:01 Physical Exam Vitals: Vital Signs Temp Pulse Pulse Resp BP BP Pulse Ox 07/19/24 04:02 98.3 F 109 H 16 110/71 97 07/19/24 02:30 120 H 16 07/18/24 23:16 97.7 F 120 H 16 118/77 98 07/18/24 21:00 98.1 F 120 H 16 116/77 100 07/18/24 20:05 98.7 F 120 H 18 110/75 98 07/18/24 17:33 115 H 16 102/73 98 07/18/24 15:08 107 H 16 97/66 98 07/18/24 13:03 97.9 F 107 H 18 109/76 99 Intake and Output 07/18/24 07/19/24 07/19/24 22:59 06:59 14:59 Intake Total 500 Balance 500 Intake: Oral 500 Other: Voiding Method Toilet Toilet # Voids 2 Weight 65.771 kg 71.5 kg Results CBC & Chem 7: 07/18/24 13:40 07/18/24 13:40 Labs: Abnormal Lab Results - Last 24 Hours (Table) 07/18/24 07/18/24 07/18/24 Range/Units 13:40 13:40 13:40 MPV 9.0 L (9.5-12.2) fL D-Dimer 0.74 H (<0.60) mg/L FEU Carbon Dioxide 20 L (22-30) mmol/L Troponin I (0.000-0.034) ng/mL Total Protein 8.4 H (6.3-8.2) g/dL Urine Blood (Negative) Ur Leukocyte Esterase (Negative) Urine RBC (0-5) /hpf Urine WBC (0-5) /hpf Urine Bacteria (None) /hpf 07/18/24 07/18/24 07/18/24 Range/Units 13:40 13:55 17:04 MPV (9.5-12.2) fL D-Dimer (<0.60) mg/L FEU Carbon Dioxide (22-30) mmol/L Troponin I 0.047 H* 2.220 H* (0.000-0.034) ng/mL Total Protein (6.3-8.2) g/dL Urine Blood Trace H (Negative) Ur Leukocyte Esterase Large H (Negative) Urine RBC 10 H (0-5) /hpf Urine WBC 16 H (0-5) /hpf Urine Bacteria Rare H (None) /hpf Thrombosis Risk Factor Assmnt - Choose All That Apply Any of the Below Risk Factors Present?: No Other Risk Factors: No Thrombosis Risk Factor Assessment Level: Very Low Risk
[2024-07-19] MEDS: NORETHINDRONE E ESTRADIOL IRON PO SCH (14:45)
[2024-07-19] MEDS: BALSALAZIDE DISODIUM 750 MG CAPSULE PO SCH (15:27)
[2024-07-19 15:59] LABS: Appearance,Urine Clear (Clear); Bilirubin,Urine Negative (Negative); Blood,Urine Negative (Negative); Color,Urine Colorless; Glucose,Urine (UA) Negative (Negative); Ketones,Urine Negative (Negative); Leukocyte Esterase,Urine Large (Negative); Mucus,Urine Rare /hpf; Nitrite,Urine Negative (Negative); PH, Urine 6.5 (5.0-8.0); Protein,Urine Negative (Negative); RBC,Urine 5 /hpf (0-5); Specific Gravity,Urine 1.007 (1.001-1.035); Squamous Epithelial Cell,Urine <1 /hpf (0-4); Urobilinogen,Urine <2.0 mg/dL (<2.0); WBC,Urine 3 /hpf (0-5)
[2024-07-20 08:09] LABS: African American GFR (CKD) >90 (>60 ml/min/1.73 sqM); Anion Gap 11 mmol/L; Blood Urea Nitrogen 6 mg/dL (7-17); Calcium 9.6 mg/dL (8.4-10.2); Carbon Dioxide 21 mmol/L (22-30); Chloride 107 mmol/L (98-107); Glucose 91 mg/dL (74-99); Non-African American GFR(CKD) >90 (>60 ml/min/1.73 sqM); Potassium 4.1 mmol/L (3.5-5.1); Sodium 139 mmol/L (137-145)
[2024-07-20] MEDS: METOPROLOL SUCCINATE (ER) 25 MG TAB.ER.24H PO SCH (09:46)
[2024-07-20 09:55] LABS: HGB 12.9 g/dL (12.0-15.0); MCH 30.4 pg (27.0-32.0); MCHC 33.1 g/dL (32.0-37.0); MCV 91.8 fL (80.0-97.0); Mean Platelet Volume 9.2 fL (9.5-12.2); Platelet Count 364 10*3/uL (140-440); RBC 4.25 10*6/uL (4.10-5.20); RDW 13.8 % (11.5-14.5); WBC 8.41 10*3/uL (4.50-10.00)
--- NOTE | 2024-07-20 10:04 | P.PN ---
Subjective HISTORY OF PRESENT ILLNESS: This is a 19-year-old female with a past medical history significant for myocarditis and ulcerative colitis. Patient follows in the office with Dr. Wood. We have been asked to see the patient in consultation for chest pain. Patient examined at the bedside. Patient states yesterday around noon she started developing chest discomfort. She states the pain was in the middle of her chest and states that it was worse with deep inspiration. She denied any radiation of the pain. Denies any shortness of breath. The patient does have a history of myocarditis in January 2024. She underwent a cardiac MRI revealing evidence of myocarditis involving the inferior wall however no myocardial damage reported. She does report receiving nitro overnight a few times. She continues to report chest pain this morning with deep inspiration that is unchanged from admission. She reports a history of ulcerative colitis and states that she received her injection a few weeks ago. She states she was started on this in March. DIAGNOSTICS: - EKG reveals sinus tachycardia with no signs of acute ischemia. - Chest CT: Negative for pulmonary embolism or acute thoracic process - Laboratory data: WBC 9.67. Hemoglobin 13.8. Platelet count 397. D-dimer 0.74. Troponin 0.047. 2.220. TSH 0.960. - Current home cardiac medications include metoprolol succinate 25 mg (frequency unknown) - Echocardiogram obtained this admission reveals ejection fraction 55 to 60%, no obvious regional wall motion abnormalities, no significant valvular disease and no pericardial effusion - Cardiac catheterization history: Patient denies 07/20/2024 Patient examined this morning the bedside. Patient does report some improvement in her chest pain this morning. ESR elevated at 57. CRP elevated at 19.4. Echocardiogram completed revealing ejection fraction 55 to 60%, no pericardial effusion, no MR no TR. PHYSICAL EXAM: VITAL SIGNS: Reviewed. GENERAL: Well-developed in no acute distress. HEENT: Head is normocephalic. Pupils are equal, round. Sclerae anicteric. Mucous membranes of the mouth are moist. Neck supple. No JVD or thyromegaly LUNGS: Respirations even and unlabored. Lungs essentially clear to auscultation bilaterally. HEART: Tachycardic. Regular rate and rhythm. S1 and S2 heard. ABDOMEN: Soft. Nondistended. Nontender. EXTREMITIES: Normal range of motion. No clubbing or cyanosis. Peripheral pulses intact. No lower extremity edema NEUROLOGIC: Awake and alert. Oriented x 3. ASSESSMENT: Chest pain Myocarditis Elevated troponins, secondary to myocarditis, no evidence of acute coronary syndrome History of myocarditis, January 2024, with cardiac MRI showing evidence of myocarditis involving inferior wall however no myocardial damage reported PLAN: Begin metoprolol succinate 25 mg daily Recommend eventual evaluation at tertiary care center for myocarditis Continue to monitor patient for additional 24 hours and anticipate discharge home tomorrow if patient remains stable Further recommendations pending patient course Nurse practitioner note has been reviewed by physician. Signing provider agrees with the documented findings, assessment, and plan of care documented by PROGRAM DIRECTOR/AIR PERSONALITY as a scribe. Objective - Vital Signs Vital signs: Vital Signs Temp 99.7 F H 07/20/24 08:13 Pulse 120 H 07/20/24 08:13 Resp 17 07/20/24 08:13 BP 115/74 07/20/24 08:13 Pulse Ox 99 07/20/24 08:13 FiO2 Intake & Output 07/19/24 07/20/24 07/20/24 18:59 06:59 18:59 Intake Total 540 250 10 Balance 540 250 10 Weight 68.8 kg Intake: IV 10 Invasive Line 1 10 Oral 540 250 Other: Voiding Method Toilet Toilet # Voids 3 2 - Labs CBC & Chem 7: 07/20/24 09:37 07/20/24 06:53 Labs: Abnormal Lab Results - Last 24 Hours (Table) 07/19/24 07/19/24 07/20/24 Range/Units 07:01 15:45 06:53 MPV (9.5-12.2) fL ESR 57 H (0-20) mm/Hr Carbon Dioxide 21 L (22-30) mmol/L BUN 6 L (7-17) mg/dL Ur Leukocyte Esterase Large H (Negative) Urine Mucus Rare H (None) /hpf 07/20/24 Range/Units 09:37 MPV 9.2 L (9.5-12.2) fL ESR (0-20) mm/Hr Carbon Dioxide (22-30) mmol/L BUN (7-17) mg/dL Ur Leukocyte Esterase (Negative) Urine Mucus (None) /hpf Microbiology - Last 24 Hours (Table) 07/18/24 13:55 Urine Culture - Final Urine,Voided
[2024-07-20] MEDS: COLCHICINE 0.6 MG EACH PO SCH (11:55)
[2024-07-21] MEDS ORDERED: FAMOTIDINE 20 MG TAB PO SCH (09:30)
[2024-07-21] MEDS: FAMOTIDINE 20 MG TAB PO SCH (10:34)
[2024-07-21] MEDS: INDOMETHACIN 25 MG CAP PO SCH (10:35)
[2024-07-21 12:12] LABS: Influenza A Not Detected (Not Detectd); Influenza B Not Detected (Not Detectd); RSV Not Detected (Not Detectd)
--- NOTE | 2024-07-21 14:16 | P.PN ---
Subjective Progress Note Date: 07/21/24 HISTORY OF PRESENT ILLNESS: This is a 19-year-old female with a past medical history significant for my ocarditis and ulcerative colitis. Patient follows in the office with Dr. Wood. We have been asked to see the patient in consultation for chest pain. Patient examined at the bedside. Patient states yesterday around noon she started developing chest discomfort. She states the pain was in the middle of her chest and states that it was worse with deep inspiration. She denied any radiation of the pain. Denies any shortness of breath. The patient does have a history of myocarditis in January 2024. She underwent a cardiac MRI revealing evidence of myocarditis involving the inferior wall however no myocardial damage reported. She does report receiving nitro overnight a few times. She continues to report chest pain this morning with deep inspiration that is unchanged from admission. She reports a history of ulcerative colitis and states that she received her injection a few weeks ago. She states she was started on this in March. DIAGNOSTICS: - EKG reveals sinus tachycardia with no signs of acute ischemia. - Chest CT: Negative for pulmonary embolism or acute thoracic process - Laboratory data: WBC 9.67. Hemoglobin 13.8. Platelet count 397. D-dimer 0.74. Troponin 0.047. 2.220. TSH 0.960. - Current home cardiac medications include metoprolol succinate 25 mg (frequency unknown) - Echocardiogram obtained this admission reveals ejection fraction 55 to 60%, no obvious regional wall motion abnormalities, no significant valvular disease and no pericardial effusion - Cardiac catheterization history: Patient denies 07/20/2024 Patient examined this morning the bedside. Patient does report some improvement in her chest pain this morning. ESR elevated at 57. CRP elevated at 19.4. Echocardiogram completed revealing ejection fraction 55 to 60%, no pericardial effusion, no MR no TR. 07/21 Patient seen today in follow-up. Patient's mother is on the phone. She states that she came into the hospital due to chest pain when she gets up and walks to the bathroom it is in the midsternal area. No tenderness. Does increase with deep breathing. She denies cough or sputum production and no recent bronchitis or viral illness. Patient has recently been started on Entyvio infusion for her ulcerative colitis in March of this year. Otherwise she is also on Lialda oral. The only other medication she takes is control which she has been on for very long time and a while back on prednisone. Dr. Castellanos discussed results of the testing with the patient and her mother on the phone. All symptoms seem to be related to pericarditis. We will obtain 1 more troponin. Plan is to obtain a limited echocardiogram prior to her discharge. Patient is on Toprol XL 25 mg. Will also add in Indocin and Pepcid. Patient will be continued on colchicine. PHYSICAL EXAM: VITAL SIGNS: Reviewed. GENERAL: Well-developed in no acute distress. HEENT: Head is normocephalic. Pupils are equal, round. Sclerae anicteric. Mucous membranes of the mouth are moist. Neck supple. No JVD or thyromegaly LUNGS: Respirations even and unlabored. Lungs essentially clear to auscultation bilaterally. HEART: Tachycardic. Regular rate and rhythm. S1 and S2 heard. ABDOMEN: Soft. Nondistended. Nontender. EXTREMITIES: Normal range of motion. No clubbing or cyanosis. Peripheral pulses intact. No lower extremity edema NEUROLOGIC: Awake and alert. Oriented x 3. ASSESSMENT: Chest pain Myocarditis Elevated troponins, secondary to pericarditis, no evidence of acute coronary syndrome History of myocarditis, January 2024, with cardiac MRI showing evidence of myocarditis involving inferior wall however no myocardial damage reported PLAN: Continue metoprolol succinate 25 mg daily Continue patient on colchicine started yesterday 0.6 mg twice daily Start patient on Indocin 25 mg twice daily along with Pepcid 20 mg twice daily Obtain 1 more troponin Plan for a limited echocardiogram prior to her discharge. Further recommendations pending patient course Nurse practitioner note has been reviewed by physician. Signing provider agrees with the documented findings, assessment, and plan of care documented by MENTAL HEALTH WORKER as a scribe. Objective - Vital Signs Vital signs: Vital Signs Temp 99.0 F 07/21/24 12:00 Pulse 106 H 07/21/24 12:00 Resp 14 07/21/24 12:00 BP 101/68 07/21/24 12:00 Pulse Ox 97 07/21/24 12:00 FiO2 Intake & Output 07/20/24 07/21/24 07/21/24 18:59 06:59 18:59 Intake Total 20 520 10 Balance 20 520 10 Weight 68.5 kg Intake: IV 20 20 10 Invasive Line 1 20 20 10 Oral 500 0 Other: Voiding Method Toilet Toilet Toilet # Voids 1 1 # Bowel Movements 1 - Labs CBC & Chem 7: 07/20/24 09:37 07/20/24 06:53 Labs: Abnormal Lab Results - Last 24 Hours (Table) 07/21/24 Range/Units 10:04 Troponin I 0.760 H* (0.000-0.034) ng/mL
[2024-07-22 08:04] VITALS: RESP 17
[2024-07-22 13:00] VITALS: TEMP 98.4
--- NOTE | 2024-07-22 13:10 | P.PN ---
Subjective Progress Note Date: 07/22/24 HISTORY OF PRESENT ILLNESS: This is a 19-year-old female with a past medical history significant for my ocarditis and ulcerative colitis. Patient follows in the office with Dr. Wood. We have been asked to see the patient in consultation for chest pain. Patient examined at the bedside. Patient states yesterday around noon she started developing chest discomfort. She states the pain was in the middle of her chest and states that it was worse with deep inspiration. She denied any radiation of the pain. Denies any shortness of breath. The patient does have a history of myocarditis in January 2024. She underwent a cardiac MRI revealing evidence of myocarditis involving the inferior wall however no myocardial damage reported. She does report receiving nitro overnight a few times. She continues to report chest pain this morning with deep inspiration that is unchanged from admission. She reports a history of ulcerative colitis and states that she received her injection a few weeks ago. She states she was started on this in March. DIAGNOSTICS: - EKG reveals sinus tachycardia with no signs of acute ischemia. - Chest CT: Negative for pulmonary embolism or acute thoracic process - Laboratory data: WBC 9.67. Hemoglobin 13.8. Platelet count 397. D-dimer 0.74. Troponin 0.047. 2.220. TSH 0.960. - Current home cardiac medications include metoprolol succinate 25 mg (frequency unknown) - Echocardiogram obtained this admission reveals ejection fraction 55 to 60%, no obvious regional wall motion abnormalities, no significant valvular disease and no pericardial effusion - Cardiac catheterization history: Patient denies 07/20/2024 Patient examined this morning the bedside. Patient does report some improvement in her chest pain this morning. ESR elevated at 57. CRP elevated at 19.4. Echocardiogram completed revealing ejection fraction 55 to 60%, no pericardial effusion, no MR no TR. 07/21 Patient seen today in follow-up. Patient's mother is on the phone. She states that she came into the hospital due to chest pain when she gets up and walks to the bathroom it is in the midsternal area. No tenderness. Does increase with deep breathing. She denies cough or sputum production and no recent bronchitis or viral illness. Patient has recently been started on Entyvio infusion for her ulcerative colitis in March of this year. Otherwise she is also on Lialda oral. The only other medication she takes is control which she has been on for very long time and a while back on prednisone. Dr. Castellanos discussed results of the testing with the patient and her mother on the phone. All symptoms seem to be related to pericarditis. We will obtain 1 more troponin. Plan is to obtain a limited echocardiogram prior to her discharge. Patient is on Toprol XL 25 mg. Will also add in Indocin and Pepcid. Patient will be continued on colchicine. 07/22 Patient seen and examined. Yesterday, patient was started on Indocin as well as Pepcid. She thinks her chest pain is a little bit better today. She has less pain with deep breathing. She states she has only been from her bed to the bathroom. We will recheck limited echocardiogram today. Blood pressure 101/67, heart rate 93, pulse ox 98% on room air. Additional troponin was obtained yesterday that came back at 0.76. PHYSICAL EXAM: VITAL SIGNS: Reviewed. GENERAL: Well-developed in no acute distress. HEENT: Head is normocephalic. Pupils are equal, round. Sclerae anicteric. Mucous membranes of the mouth are moist. Neck supple. No JVD or thyromegaly LUNGS: Respirations even and unlabored. Lungs essentially clear to auscultation bilaterally. HEART: Regular rate and rhythm. S1 and S2 heard. ABDOMEN: Soft. Nondistended. Nontender. EXTREMITIES: Normal range of motion. No clubbing or cyanosis. Peripheral pulses intact. No lower extremity edema NEUROLOGIC: Awake and alert. Oriented x 3. ASSESSMENT: Chest pain Myocarditis Elevated troponins, secondary to pericarditis, no evidence of acute coronary syndrome History of myocarditis, January 2024, with cardiac MRI showing evidence of myocarditis involving inferior wall however no myocardial damage reported PLAN: Continue metoprolol succinate 25 mg daily Continue patient on colchicine 0.6 mg twice daily Continue patient on Indocin 25 mg twice daily along with Pepcid 20 mg twice daily Obtain limited echocardiogram prior to her discharge. Further recommendations pending patient course Nurse practitioner note has been reviewed by physician. Signing provider agrees with the documented findings, assessment, and plan of care documented by MEALS ON WHEELS DRIVER as a scribe. Objective - Vital Signs Vital signs: Vital Signs Temp 98.3 F 07/22/24 08:00 Pulse 93 07/22/24 08:00 Resp 17 07/22/24 08:00 BP 95/64 07/22/24 08:00 Pulse Ox 98 07/22/24 08:00 FiO2 Intake & Output 07/21/24 07/22/24 07/22/24 18:59 06:59 18:59 Intake Total 20 20 Balance 20 20 Weight 68 kg Intake: IV 20 20 Invasive Line 1 20 20 Oral 0 Other: Voiding Method Toilet Toilet # Voids 3 1 - Labs CBC & Chem 7: 07/20/24 09:37 07/20/24 06:53 Labs: Abnormal Lab Results - Last 24 Hours (Table) 07/21/24 Range/Units 10:04 Troponin I 0.760 H* (0.000-0.034) ng/mL Microbiology - Last 24 Hours (Table) 07/20/24 09:37 Blood Culture - Preliminary Blood
[2024-07-22 15:17] VITALS: BP 95/60; PULSE 101
--- NOTE | 2024-07-22 17:19 | CA ---
Transthoracic Echo Report Name: Lauren Pereira Age: 19 Gender: F : 2005 Exam Date: 07/22/2024 10:33 Exam Location: [place] [facility] Ht (in): 61 Wt (lb): 149 Ordering Physician: Kaylee Ga Attending/Referring Phys: [id number], Sury Bowling Pin Setters Installer Ngoc Arizmendi RDCS Procedure CPT: Indications: myocarditis Cardiac Hx: Limited for myocarditis Technical Quality: Good Contrast 1: Total Dose (mL): Contrast 2: Total Dose (mL): MEASUREMENTS (Male / Female) Normal Values 2D ECHO LV Diastolic Volume MOD BP 80.7 cm??? 67 - 155 / 56 - 104 cm??? LV Systolic Volume MOD BP 35.2 cm??? 22 - 58 / 19 - 49 cm??? LV Ejection Fraction MOD BP 56.4 % >= 55 % LV Cardiac Index MOD BP 2532.2 cm???/min???m??? LV Diastolic Volume MOD 4C 81.8 cm??? LV Systolic Volume MOD 4C 30.6 cm??? LV Ejection Fraction MOD 4C 62.6 % LV Cardiac Index MOD 4C 2844.8 cm???/min???m??? LV Diastolic Length 4C 7.1 cm LV Systolic Length 4C 5.4 cm LV Diastolic Volume MOD 2C 79.2 cm??? LV Systolic Volume MOD 2C 36.3 cm??? LV Ejection Fraction MOD 2C 54.2 % LV Cardiac Index MOD 2C 2385.2 cm???/min???m??? LV Diastolic Length 2C 7.2 cm LV Systolic Length 2C 6.2 cm DOPPLER TR Peak Velocity 145.6 cm/s TR Peak Gradient 8.5 mmHg FINDINGS Left Ventricle Left ventricular ejection fraction is estimated at 60 %. Normal left ventricular systolic function with no obvious regional wall motion abnormalities. Right Ventricle Mild right ventricular dilatation. Right Atrium Left Atrium Mitral Valve Structurally normal mitral valve. No mitral stenosis. No mitral regurgitation. Aortic Valve Trileaflet aortic valve. No aortic valve stenosis or regurgitation. Tricuspid Valve Structurally normal tricuspid valve. No tricuspid stenosis. Trace tricuspid regurgitation. Pulmonic Valve Pericardium No pericardial effusion. Aorta CONCLUSIONS Normal LV size and systolic function. Prominent right ventricle. No significant abnormality on the Doppler exam. No pericardial effusion Previewed by: Dr. Eric Saunders MD (Electronically Signed) Final Date: 22 Jul 2024 17:18
--- NOTE | 2024-07-23 11:04 | P.PN ---
Subjective Progress Note Date: 07/22/24 Patient is a 19-year-old female with a known history of ulcerative colitis currently on immunotherapy presents to ER with complaints of chest discomfort/pressure-like sensation mid retrosternal which worsens with deep breathing. Patient does have a history of myocarditis and had a cardiac MRI previously. 07/22/2024 Patient is currently sitting in the chair. Awake alert and oriented x 3. Chest pressure is better. No complaints of shortness of breath. No nausea vomiting abdominal diarrhea. Patient is being continued on colchicine and indomethacin was added. Patient is also on metoprolol 25 mg daily. Laboratory data reviewed. Influenza A B RSV and COVID-19 PCR not detected. Troponin 0.760. Cardiology is on board. Current medications reviewed. Objective - Vital Signs Vital signs: Vital Signs Temp 98.4 F 07/22/24 12:00 Pulse 93 07/22/24 12:00 Resp 17 07/22/24 12:00 BP 101/67 07/22/24 12:00 Pulse Ox 98 07/22/24 12:00 FiO2 Intake & Output 07/21/24 07/22/24 07/22/24 18:59 06:59 18:59 Intake Total 20 20 260 Balance 20 20 260 Weight 68 kg Intake: IV 20 20 20 Invasive Line 1 20 20 20 Oral 0 240 Other: Voiding Method Toilet Toilet Toilet # Voids 3 1 - Exam PHYSICAL EXAMINATION: Patient is lying in the bed comfortably, no acute distress, awake alert and oriented.. HEENT: Normocephalic. Neck is supple. Pupils reactive. Nostrils clear. Oral cavity is moist. Neck reveals no JVD, carotid bruits, or thyromegaly. CHEST EXAMINATION: Trachea is central. Symmetrical expansion. Lung funez clear to auscultation and percussion. CARDIAC: Normal S1, S2 with no gallops. No murmurs ABDOMEN: Soft. Bowel sounds normal. No organomegaly. No abdominal bruits. Extremities: reveal no edema. No clubbing or cyanosis Neurologically awake, alert, oriented x3 with well-coordinated movements. No focal deficits noted Skin: No rash or skin lesions. Psychiatric: Coperative. Nonsuicidal Musculoskeletal: No joint swelling or deformity. Normal range of motion. - Labs CBC & Chem 7: 07/20/24 09:37 07/20/24 06:53 Labs: Microbiology - Last 24 Hours (Table) 07/20/24 09:37 Blood Culture - Preliminary Blood Assessment and Plan Assessment: Pleuritic chest pain likely due to pericarditis History of myocarditis in #2023. Patient had cardiac MRI previously showed evidence of myocarditis involving the inferior wall however no myocardial damage reported. Elevated troponin level secondary to pericarditis unlikely ACS GI prophylaxis Pepcid Plan: Patient will be continued on telemonitoring. Continue with colchicine and indomethacin 25 mg twice daily was added. Continue with GI prophylaxis. Continue with metoprolol. Limited echocardiogram was ordered today. Anticipate discharge in the next 24 hours. Cardiology is on board. Time with Patient: Greater than 30
--- NOTE | 2024-07-23 16:36 | PN ---
PROGRESS NOTE This is a 19-year-old lady with history of inflammatory bowel disease and prior history of myocarditis, who is admitted to hospital with chest pain and had a troponin elevation secondary to myocarditis. Her initial EKG revealed sinus rhythm with sinus tachycardia. An echocardiogram revealed normal LV systolic function without any pericardial effusion. Her ESR is elevated as is the C-reactive protein. The patient's myocarditis had been evaluated by my associate, Dr. Wood, as outpatient. She even had a cardiac MRI and was getting better, was offered to go see a tertiary care center, but opted not to. This morning, she still says that she is not back to her normal self. She is able to take deeper breath, but still has some chest tightness and remains in sinus tachycardia. I will resume the Toprol-XL that she used to be on in the past. I will try her on colchicine to see if she has a component of pericarditis that she might benefit from. I spoke to Dr. Wood, and the plan at this stage is to talk to somebody who deals with cardiomyopathy and myocarditis at either [facility] or [facility] tomorrow and decide on further plans. MMODL / IJN: [id number] /
--- NOTE | 2024-07-23 16:36 | PN ---
PROGRESS NOTE CHIEF COMPLAINT: Chest pain. HISTORY OF PRESENT ILLNESS: This lady is running low-grade fevers. She only has pain when she breathes in and out. Blood cultures were obtained. She denies any other symptoms such as abdominal pain, dysuria, cough, etc. She has been started on colchicine. PHYSICAL EXAMINATION: CHEST: Clear. CARDIAC: Normal. ABDOMEN: Soft, nontender. IMPRESSION: 1. Chest pain with fever. 2. Myocarditis?.. 3. Pericarditis?.. PLAN: Continue to follow. Cardiology is recommending an addition of Indocin. If she continues to have difficulty, we may transfer her to a tertiary hospital. MMODL / IJN: [id number] /
--- NOTE | 2024-07-23 16:36 | HP ---
HISTORY AND PHYSICAL CHIEF COMPLAINT: Chest pain. HISTORY OF PRESENT ILLNESS: This is another admission for this 19-year-old female. She was in the hospital several months ago with chest pain and was diagnosed as having cardiomyopathy. She does have ulcerative colitis and follows with Gastroenterology and is currently on due medications for her disease. started this morning and she only felt a pressure in her chest. She had no fever, cough, diaphoresis, discomfort, etc. In the emergency room, D-dimer slightly elevated, but a CTA of the chest was normal. Troponin was up as well. REVIEW OF SYSTEMS: She has other otherwise no other symptoms. She has never had hypertension. Past medical history, family history, and personal and social histories are unremarkable other than that already mentioned. Her ulcerative colitis is currently under good control. She is allergic to propofol and cephalosporins. She has never smoked. PHYSICAL EXAMINATION: VITAL SIGNS: Reveals normal blood pressure. She does have a sinus tachycardia of 128 beats. HEAD, EARS, EYES, NOSE, MOUTH AND THROAT: Normal. CHEST: Clear. CARDIAC: Demonstrated tachycardia with no murmurs or extra sounds. ABDOMEN: Soft, nontender. Bowel sounds present. EXTREMITIES: Normal. NEUROLOGIC: She is intact. DIAGNOSES: She is admitted to the hospital diagnoses, 1. Chest pain. 2. History of cardiomyopathy. 3. Elevated troponin and D-dimer. 4. Ulcerative colitis. PLAN: 1. Bedrest. 2. IV fluids. 3. Cardiology consult. MIGUEL ANGEL / BLUE: [id number] /
--- NOTE | 2024-07-23 16:36 | PN ---
PROGRESS NOTE DATE OF SERVICE: 07/20/2024 CHIEF COMPLAINT: Chest pain. HISTORY OF PRESENT ILLNESS: This lady is doing fairly well, but she has run a low-grade temperature this afternoon. She denies any cough, dysuria, abdominal pain, etc. She states she still has pain in the anterior chest when she takes a deep breath. Her picture at this point is most compatible with a myocarditis. PHYSICAL EXAMINATION: CHEST: Clear. CARDIAC: Normal. ABDOMEN: Soft, nontender. IMPRESSION: 1. Myocarditis. 2. Fever of unknown origin. PLAN: Blood culture, urinalysis, and CBC. MMODL / IJN: [id number] /
--- NOTE | 2024-07-25 00:55 | DS ---
DISCHARGE SUMMARY CHIEF COMPLAINT: Chest pain. HISTORY OF PRESENT ILLNESS AND PHYSICAL EXAMINATION: Details of this lady's history and physical can be found in the initial workup. LABORATORY STUDIES: While she is in the hospital, she had laboratory studies, details of which can be found in the laboratory section of her chart. COURSE IN THE HOSPITAL: After admission, she was placed on bedrest, started on intravenous fluids and cardiac enzymes were slightly elevated. She was seen by Cardiology and it was determined that she probably had a pericarditis and/or myocarditis. She did run low-grade temperatures. She eventually stabilized and it was felt that she could go home and she will follow up in our office as well as with Cardiology. FINAL DIAGNOSES: 1. Chest pain. 2. Pericarditis. 3. History of myocarditis. OPERATIONS: None. CONSULTATIONS: Cardiology. She is improved. MMODL / YEISONN: [id number] /
--- NOTE | 2024-07-28 22:01 | P.DS ---
Providers Date of admission: 07/18/24 17:26 Expected date of discharge: 07/22/24 Attending physician: Benny Key Consults: 07/18/24 15:55 Consult Physician Urgent Consulting Provider: Romeo Bingham Consult Reason/Comments: chest pain Do you want consulting provider notified?: Yes Primary care physician: Benny Key Hospital Course: Final diagnosis Pleuritic chest pain likely due to pericarditis History of myocarditis in #2023. Patient had cardiac MRI previously showed evidence of myocarditis involving the inferior wall however no myocardial damage reported. Elevated troponin level secondary to pericarditis unlikely ACS GI prophylaxis Pepcid DVT prophylaxis Full code Discharge disposition Patient is being discharged in a stable condition with guarded prognosis to home. Patient will follow-up with Dr. Key in the outpatient setting upon discharge. Patient is to continue with current medications as mentioned below and cardiology recommending outpatient follow-up in 1 week as scheduled. Total time taken is greater than 35 minutes. Hospital course This is a 19-year-old female who was recently admitted with chest pain likely pleuritic and being followed by cardiology. Medications being adjusted and patient was started on colchicine and will continue daily and also Indocin recommending close outpatient follow-up. Patient has been cleared by cardiology after repeat echo was performed and patient reports feeling improved and would like to go home. Please refer to cardiology consultation notes for further HPI. Currently no reports of chest pain, shortness of breath, or palpitations. Patient is afebrile. No reports of nausea or vomiting and patient is tolerating diet. Patient will be discharged home today. Guarded prognosis Physical exam: Gen: This is a 19-year-old female who is awake, alert and oriented x 3, well- developed, well-nourished HEENT: Head is atraumatic, normocephalic. Pupils equal, round. Sclerae is a nicteric. NECK: Supple. No JVD. No lymphadenopathy. No thyromegaly. LUNGS: Clear to auscultation. No wheezes or rhonchi. No intercostal retractions. HEART: S1, S2 are muffled ABDOMEN: Soft. Bowel sounds are present. No masses. No tenderness. EXTREMITIES: No pedal edema. No calf tenderness. NEUROLOGICAL: Patient is awake, alert and oriented x3. Cranial nerves 2 through 12 are grossly intact. Please refer to medication reconciliation sheet for a list of medications. The impression and plan of care has been dictated by Rose Hauser, Nurse Practitioner as directed. Dr. Aure MD I have performed a history and examination and MDM of this patient, discussed the same with the dictator, and agree with the dictator's assessment and plan as written ,documented as a scribe. Based on total visit time, I have performed more than 50% of the visit. Patient Condition at Discharge: Stable Plan - Discharge Summary Discharge Rx Participant: No New Discharge Prescriptions: New Colchicine [Colcrys] 0.6 mg PO DAILY #30 each Indomethacin [Indocin] 25 mg PO BID 7 Days #14 cap Famotidine [Pepcid] 20 mg PO BID #60 tablet Metoprolol Succinate (ER) [Toprol XL] 25 mg PO DAILY 30 Days #30 tab Continue Mesalamine [Lialda] 1.2 gm PO BID norethindrone-e.estradioL-iron [Junel Fe 1.5 mg-30 Mcg Tablet] 1 tab PO DAILY@1400 Entyvio Infusion 300 mg IV Q56D Discontinued Metoprolol Succinate (ER) [Toprol Xl] 25 mg PO ONETIME Discharge Medication List Mesalamine [Lialda] 1.2 gm PO BID 01/25/24 [History] norethindrone-e.estradioL-iron [Junel Fe 1.5 mg-30 Mcg Tablet] 1 tab PO DAILY@1400 01/25/24 [History] Entyvio Infusion 300 mg IV Q56D 07/18/24 [History] Colchicine [Colcrys] 0.6 mg PO DAILY #30 each 07/22/24 [Rx] Indomethacin [Indocin] 25 mg PO BID 7 Days #14 cap 07/22/24 [Rx] Metoprolol Succinate (ER) [Toprol XL] 25 mg PO DAILY 30 Days #30 tab 07/22/24 [Rx] Famotidine [Pepcid] 20 mg PO BID #60 tablet 07/23/24 [Rx] Follow up Appointment(s)/Referral(s): Heriberto Wood MD [Medical Doctor] - 07/23/24 11:15 am () Benny Key MD [Primary Care Provider] - 1-2 days Patient Instructions/Handouts: Myocarditis (DC) Activity/Diet/Wound Care/Special Instructions: Activity limited until follow-up Follow-up with primary care provider on discharge Follow-up with sonogram technician in 1 week Continue taking 0.6 colchicine daily Per cardiology continue with indomethacin for the next few days and follow-up with primary sonogram technician Discharge Disposition: HOME SELF-CARE
== END 2024-07-22 18:22 | disposition home or self-care (01) ==
LOC: EC 13:01 → 3SCARD 17:26
PROVIDERS: ADMIT Family Medicine; ATTEND Family Medicine
DX: R07.89 Other chest pain (principal); I31.9 Disease of pericardium, unspecified; I42.9 Cardiomyopathy, unspecified; K51.90 Ulcerative colitis, unspecified, without complications; R00.0 Tachycardia, unspecified; R79.89 Other specified abnormal findings of blood chemistry; R82.71 Bacteriuria; Z79.3 Long term (current) use of hormonal contraceptives; Z79.620 Long term (current) use of immunosuppressive biologic; Z79.899 Other long term (current) drug therapy; Z88.4 Allergy status to anesthetic agent; Z88.1 Allergy status to other antibiotic agents; Z86.79 Personal history of other diseases of the circulatory system; Z11.52 Encounter for screening for COVID-19; Z11.59 Encounter for screening for other viral diseases
CPT/HCPCS: 96360; 96361; 99285; 36415; 93005; 93308 ×2; 85379; 80053; 80048; 85652; 84443; 83735; 84484 ×2; 85025; 85027; 85610; 85730; 86140; 81001 ×2; 81025; 87040; 87086; 87636; 71275; G0378 ×5; Q9967